=== PATIENT | female | born 1985 | race Two or more races ===

== ENCOUNTER 2022-06-03 23:41 | Emergency (ER) | payer MEDICAID ==
[~2022-06-03] VITALS: Ht 167.6 cm; Wt 85.0 kg
[2022-06-04] MEDS ORDERED: HYDROmorphone HCL 2 MG/ML VL/or syr IM ONE (01:30)
[2022-06-04] MEDS ORDERED: LIDOCAINE 1% HCL (LOCAL ANESTH.) INJ 20ML MDV ID ONE (01:30)
[2022-06-04 01:46] LABS: Basophils # (auto) 0.1 10 ^3/uL (0-0.2); Basophils % (auto) 0.7 % (0.0-2.0); Eosinophils # (auto) 0.1 10 ^3/uL (0-0.8); Eosinophils % (auto) 0.9 % (0.0-7.0); Hematocrit 41.1 % (36.0-46.0); Hemoglobin 14.4 g/dL (12.2-16.2); Lymphocytes # (auto) 3.1 10 ^3/uL (0.4-5.4); Lymphocytes % (auto) 33.4 % (10.0-50.0); Mean Corpuscular Hgb Conc. 35.1 g/dL (32.0-36.0); Mean Corpuscular Volume 85.6 fL (80.0-100.0); Monocytes # (auto) 0.5 10 ^3/uL (0-1.3); Monocytes % (auto) 5.5 % (0.0-12.0); Neutrophils # (auto) 5.5 10 ^3/uL (1.6-8.6); Neutrophils % (auto) 59.5 % (37.0-80.0); Nucleated Red Blood Cells % 0.1 %; Red Cell Distribution Width 13.6 % (11.8-14.3); White Blood Cell 9.3 10^3/uL (4.4-10.8)
[2022-06-04 02:01] LABS: Albumin 3.5 g/dL (3.4-5.0); Calcium 9.2 mg/dL (8.5-10.1); Potassium 3.4 mmol/L (3.5-5.1)
[2022-06-04 02:02] LABS: BUN/Creatinine Ratio 16.4
[2022-06-04 02:04] LABS: Bilirubin, Total 0.5 mg/dL (0.2-1.0); Total Protein 8.1 g/dL (6.4-8.2)
[2022-06-04 02:59] LABS: Protein, CSF 38.9 mg/dL (15-45)
[2022-06-04 03:43] LABS: CSF White Blood Cells 1.67 CUMM (0-5)
[2022-06-04 05:25] VITALS: BP 133/88
== END 2022-06-04 05:28 | disposition home or self-care (01) ==
LOC: EDBD 23:41 → ER 23:46
DX: R07.89 Other chest pain (principal); R51.9 Headache, unspecified
CPT/HCPCS: 36415; 80053; 82945; 83880; 84157; 84484; 85025; 87070; 87205; 87529; 89051; 93005; 96372; 99285; J1170; J2001

== ENCOUNTER 2023-02-13 10:10 | Emergency (ER) | payer MEDICAID ==
[~2023-02-13] VITALS: Ht 167.6 cm; Wt 82.0 kg
[2023-02-13 10:43] LABS: Basophils # (auto) 0 10 ^3/uL (0-0.2); Basophils % (auto) 0.5 % (0.0-2.0); Eosinophils # (auto) 0.1 10 ^3/uL (0-0.8); Eosinophils % (auto) 0.8 % (0.0-7.0); Hematocrit 38.5 % (36.0-46.0); Hemoglobin 12.8 g/dL (12.2-16.2); Lymphocytes # (auto) 1.4 10 ^3/uL (0.4-5.4); Lymphocytes % (auto) 20.2 % (10.0-50.0); Mean Corpuscular Hemoglobin 28.1 pg (28.0-32.0); Mean Corpuscular Hgb Conc. 33.3 g/dL (32.0-36.0); Mean Corpuscular Volume 84.4 fL (80.0-100.0); Monocytes # (auto) 0.3 10 ^3/uL (0-1.3); Monocytes % (auto) 3.9 % (0.0-12.0); Neutrophils # (auto) 5.3 10 ^3/uL (1.6-8.6); Neutrophils % (auto) 74.6 % (37.0-80.0); Nucleated Red Blood Cells % 0.1 %; Red Blood Cells 4.56 10^6/uL (4.0-5.20); Red Cell Distribution Width 13.2 % (11.8-14.3); White Blood Cell 7.1 10^3/uL (4.4-10.8)
[2023-02-13 10:57] LABS: INR 1.13 (0.9-1.15); Partial Thromboplastin Time 33.8 SEC (24.5-34.5)
[2023-02-13 11:18] LABS: Potassium 3.1 mmol/L (3.5-5.1)
[2023-02-13 11:26] LABS: Albumin 3.8 g/dL (3.4-5.0); BUN/Creatinine Ratio 18.1 (10.0-20.0); Bilirubin, Total 0.5 mg/dL (0.2-1.0); Calcium 9.2 mg/dL (8.5-10.1); Magnesium 2.3 mg/dL (1.6-2.6); Total Protein 7.3 g/dL (6.4-8.2)
[2023-02-13] MEDS ORDERED: POTASSIUM CHL 20 Meq TABLET PO ONE (12:45)
[2023-02-13 13:35] VITALS: BP 127/67
== END 2023-02-13 14:26 | disposition home or self-care (01) ==
LOC: ER 10:10
DX: R00.2 Palpitations (principal); E87.6 Hypokalemia; Z88.8 Allergy status to other drugs, medicaments and biological substances; Z90.49 Acquired absence of other specified parts of digestive tract; Z90.710 Acquired absence of both cervix and uterus; Z98.890 Other specified postprocedural states; Z87.891 Personal history of nicotine dependence
CPT/HCPCS: 36415; 71045; 80053; 83735; 84484; 85025; 85610; 85730; 93005

== ENCOUNTER 2023-07-16 17:41 | Emergency (ER) | payer MEDICAID ==
[~2023-07-16] VITALS: Ht 167.6 cm; Wt 76.0 kg
[2023-07-16 18:40] LABS: Basophils # (auto) 0 10 ^3/uL (0-0.2); Basophils % (auto) 0.2 % (0.0-2.0); Eosinophils # (auto) 0 10 ^3/uL (0-0.8); Hemoglobin 11.8 g/dL (12.2-16.2); Lymphocytes % (auto) 26.9 % (10.0-50.0); Mean Corpuscular Hemoglobin 28.5 pg (28.0-32.0); Mean Corpuscular Hgb Conc. 34.7 g/dL (32.0-36.0); Mean Corpuscular Volume 82.3 fL (80.0-100.0); Monocytes # (auto) 0.1 10 ^3/uL (0-1.3); Monocytes % (auto) 4.2 % (0.0-12.0); Neutrophils # (auto) 2.4 10 ^3/uL (1.6-8.6); Neutrophils % (auto) 68.7 % (37.0-80.0); Red Blood Cells 4.13 10^6/uL (4.0-5.20); Red Cell Distribution Width 12.5 % (11.8-14.3); White Blood Cell 3.5 10^3/uL (4.4-10.8)
[2023-07-16 18:47] LABS: Urine Bacteria MOD /hpf (None Seen); Urine Blood Negative /uL (Negative); Urine Clarity Clear (Clear); Urine Color STRAW (Yellow); Urine Protein, UAD Negative (Negative); Urine Specific Gravity 1.004 (1.001-1.035); Urine Urobilinogen Normal (Negative); Urine WBC 3 /hpf (0 - 5); Urine pH 6.5 (5.0-8.0)
[2023-07-16 18:51] LABS: Alanine Aminotransferase 23 U/L (7-40); Albumin 4.2 g/dL (3.2-4.8); Alkaline Phosphatase 159 U/L (46-116); Anion Gap 9 (5-15); Aspartate Aminotransferase 26 U/L (13-40); BUN/Creatinine Ratio 15.9 (10.0-20.0); Bilirubin, Total 0.2 mg/dL (0.2-1.0); Blood Urea Nitrogen 13 mg/dL (9-23); Calcium 8.7 mg/dL (8.5-10.1); Carbon Dioxide 28 mmol/L (20-30); Chloride 104 mmol/L (98-107); Glucose 102 mg/dL (74-106); Potassium 3.2 mmol/L (3.5-5.1); Sodium 141 mmol/L (136-145); Total Protein 8.8 g/dL (5.7-8.2)
[2023-07-16] MEDS ORDERED: METOCLOPRAMIDE HCL 5MG/ml INJ 2ml VIAL IM ONE (19:15)
[2023-07-16] MEDS ORDERED: KETOROLAC TROMETH 30 MG/ML 1ML VIAL IM ONE (19:15)
[2023-07-16] MEDS ORDERED: diphenhdrAMINE HCL 50 MG/1 ML VL IM ONE (19:15)
[2023-07-16 19:58] VITALS: TEMP 98.1
[2023-07-16] MEDS ORDERED: HYDROmorphone HCL 2 MG/ML VL/or syr IM ONE (21:45)
[2023-07-16] MEDS ORDERED: ONDANSETRON HCL 4 MG/2 ML VIAL IM ONE (21:45)
[2023-07-16 22:00] VITALS: PULSE 43; RESP 14; O2SAT 97
[2023-07-16 22:47] LABS: INR 1.09 (0.9-1.15); Partial Thromboplastin Time 25.7 SEC (24.5-34.5); Prothrombin Time 11.4 sec (9.3-11.8)
[2023-07-16 23:56] LABS: Protein, CSF 54.9 mg/dL (15-45)
[2023-07-17 00:51] LABS: CSF White Blood Cells 0 CUMM (0-5); Description,CSF CLEAR, COLORLESS
[2023-07-17] MEDS ORDERED: LORazepam 2MG/ML-1ML VIAL IV ONE (01:30)
[2023-07-17] MEDS: POTASSIUM CHL 20MEQ/100ML 100 ML IV SCH ×2 (02:17→04:15)
[2023-07-17 05:00] VITALS: BP 158/78; PULSE 45; RESP 12; O2SAT 100
== END 2023-07-17 07:32 | disposition home or self-care (01) ==
LOC: ER 17:41 → EDBD 17:41 → ER 07-17 07:32
DX: R51.9 Headache, unspecified (principal); E87.6 Hypokalemia; I25.2 Old myocardial infarction; Z90.49 Acquired absence of other specified parts of digestive tract; Z90.710 Acquired absence of both cervix and uterus; Z87.891 Personal history of nicotine dependence
CPT/HCPCS: 36415; 62270; 70450; 80053; 81001; 82945; 84157; 84484; 85025; 85610; 85730; 87040; 87070; 87205; 89051; 93005; 96365; 96366; 96372; 96375; 99285; J1170; J1200; J1885; J2060; J2405; J2765; J3480

== ENCOUNTER 2023-07-26 10:46 | Inpatient (IN) | payer MEDICAID ==
[~2023-07-26] VITALS: Ht 167.6 cm; Wt 77.0 kg
[2023-07-26] MEDS ORDERED: NITROGLYCERIN 0.4 MG SL TAB SL ONE (12:15)
[2023-07-26 12:38] LABS: Urine Bacteria FEW /hpf (None Seen); Urine Blood Negative /uL (Negative); Urine Budding Yeast OCCASIONAL /hpf (None Seen); Urine Clarity Clear (Clear); Urine Protein, UAD Negative (Negative); Urine Specific Gravity 1.011 (1.001-1.035); Urine Urobilinogen Normal (Negative); Urine WBC 4 /hpf (0 - 5); Urine pH 6.5 (5.0-8.0)
[2023-07-26 12:42] LABS: Urine Color Straw (Yellow)
[2023-07-26 12:45] LABS: Amphetamine Screen, Urine Neg (NEGATIVE); Barbiturate Scree,Urine Neg (NEGATIVE); Benzodiazephine Screen, Urine Neg (NEGATIVE); Cannabinoid Screen, Urine Neg (NEGATIVE); Cocaine Screen, Urine Neg (NEGATIVE); Opiate Scree,Urine Neg (NEGATIVE); Phencyclidine Screen, Urine Neg (NEGATIVE)
[2023-07-26] MEDS ORDERED: LABETALOL HCL 5 MG/ML 4ML SYRINGE IV ONE (12:45)
[2023-07-26 14:13] LABS: Basophils # (auto) 0 10 ^3/uL (0-0.2); Basophils % (auto) 0.5 % (0.0-2.0); Eosinophils # (auto) 0.1 10 ^3/uL (0-0.8); Eosinophils % (auto) 1.1 % (0.0-7.0); Hematocrit 38.2 % (36.0-46.0); Lymphocytes # (auto) 2.2 10 ^3/uL (0.4-5.4); Lymphocytes % (auto) 26.8 % (10.0-50.0); Mean Corpuscular Hemoglobin 28.2 pg (28.0-32.0); Mean Corpuscular Hgb Conc. 34.1 g/dL (32.0-36.0); Mean Corpuscular Volume 82.8 fL (80.0-100.0); Monocytes # (auto) 0.4 10 ^3/uL (0-1.3); Monocytes % (auto) 5.3 % (0.0-12.0); Neutrophils # (auto) 5.3 10 ^3/uL (1.6-8.6); Neutrophils % (auto) 66.3 % (37.0-80.0); Nucleated Red Blood Cells % 0.1 %; Red Blood Cells 4.61 10^6/uL (4.0-5.20); Red Cell Distribution Width 12.6 % (11.8-14.3)
[2023-07-26 15:03] LABS: Alanine Aminotransferase 22 U/L (7-40); Albumin 4.8 g/dL (3.2-4.8); Alkaline Phosphatase 182 U/L (46-116); Anion Gap 5 (5-15); Aspartate Aminotransferase 30 U/L (13-40); BUN/Creatinine Ratio 17.2 (10.0-20.0); Bilirubin, Total 0.4 mg/dL (0.2-1.0); Blood Urea Nitrogen 11 mg/dL (9-23); Calcium 9.4 mg/dL (8.7-10.4); Carbon Dioxide 32 mmol/L (20-30); Chloride 104 mmol/L (98-107); Glucose 91 mg/dL (74-106); Magnesium 2.1 mg/dL (1.6-2.6); Potassium 3.2 mmol/L (3.5-5.1); Sodium 141 mmol/L (136-145); Total Protein 8.8 g/dL (5.7-8.2)
[2023-07-26] MEDS ORDERED: HYDROcodone-ACET 5/325MG TAB PO ONE (16:30)
[2023-07-26] MEDS ORDERED: diphenhdrAMINE HCL 50 MG/1 ML VL IV ONE (18:15)
[2023-07-26] MEDS ORDERED: diphenhdrAMINE HCL 50 MG/1 ML VL IM ONE (19:15)
[2023-07-26] MEDS ORDERED: FAMOTIDINE 20 MG TAB PO ONE (19:15)
[2023-07-26] MEDS: MAGNESIUM SULFATE 1GM/100ML 100 ML IV ONE (19:37)
[2023-07-26] MEDS ORDERED: TIZA2CAP12 PO (20:00)
[2023-07-26] MEDS ORDERED: ONDANSETRON HCL 4 MG/2 ML VIAL IV PRN (20:00)
[2023-07-26] MEDS ORDERED: POTASSIUM CHL 20 Meq TABLET PO ONE (20:00)
[2023-07-26] MEDS ORDERED: ACETAMINOPHEN 325 MG TAB PO PRN (20:00)
[2023-07-26] MEDS ORDERED: GEMF-66 PO (20:00)
[2023-07-26] MEDS ORDERED: DOCUSATE SOD 100 MG CAP PO PRN (20:00)
[2023-07-26] MEDS ORDERED: TRAZ-228 PO (20:00)
[2023-07-26] MEDS ORDERED: AMLO1TAB22 PO (20:00)
[2023-07-26] MEDS ORDERED: [UNRECOGNIZED DRUG - CODE] PO (20:00)
[2023-07-26] MEDS ORDERED: hydrALAZINE HCL 20 MG/ML VL IV PRN (20:15)
[2023-07-26] MEDS ORDERED: traZODone HCL 50 MG TAB PO SCH (22:00)
[2023-07-26] MEDS: SODIUM CHLOR 0.9% PF (SALINE LOCK) 10ML VIAL/SYR IV SCH (22:38)
[2023-07-27] VITALS (7 sets, daily range): BP systolic 162–185; BP diastolic 86–103; PULSE 67–90; RESP 16–20; TEMP 98.2–98.4; O2SAT 97–100
[2023-07-27] MEDS: METOPROLOL TARTRATE 25 MG TAB PO SCH ×2 (01:58→09:55)
[2023-07-27] MEDS: GEMFIBROZIL 600 MG TAB PO SCH ×3 (01:58→22:37)
[2023-07-27] MEDS: HYDROcodone-ACET 5/325MG TAB PO PRN ×2 (01:59→10:07)
[2023-07-27] MEDS ORDERED: diphenhdrAMINE HCL 50 MG/1 ML VL IV ONE (02:00)
[2023-07-27] MEDS ORDERED: diphenhdrAMINE HCL 50 MG/1 ML VL IM ONE (02:15)
[2023-07-27] MEDS: SODIUM CHLOR 0.9% PF (SALINE LOCK) 10ML VIAL/SYR IV SCH ×3 (06:27→22:40)
[2023-07-27 06:28] LABS: Basophils # (auto) 0 10 ^3/uL (0-0.2); Basophils % (auto) 0.6 % (0.0-2.0); Eosinophils # (auto) 0.1 10 ^3/uL (0-0.8); Eosinophils % (auto) 2.4 % (0.0-7.0); Hematocrit 37.6 % (36.0-46.0); Hemoglobin 12.8 g/dL (12.2-16.2); Lymphocytes # (auto) 2.5 10 ^3/uL (0.4-5.4); Lymphocytes % (auto) 39.9 % (10.0-50.0); Mean Corpuscular Hemoglobin 28.3 pg (28.0-32.0); Mean Corpuscular Volume 83.1 fL (80.0-100.0); Monocytes # (auto) 0.6 10 ^3/uL (0-1.3); Monocytes % (auto) 9.1 % (0.0-12.0); Neutrophils # (auto) 2.9 10 ^3/uL (1.6-8.6); Nucleated Red Blood Cells % 0.2 %; Red Blood Cells 4.53 10^6/uL (4.0-5.20); Red Cell Distribution Width 12.4 % (11.8-14.3); White Blood Cell 6.1 10^3/uL (4.4-10.8)
[2023-07-27 06:35] LABS: Alanine Aminotransferase 18 U/L (7-40); Albumin 4.5 g/dL (3.2-4.8); Alkaline Phosphatase 175 U/L (46-116); Anion Gap 9 (5-15); Aspartate Aminotransferase 30 U/L (13-40); BUN/Creatinine Ratio 14.7 (10.0-20.0); Bilirubin, Total 0.5 mg/dL (0.2-1.0); Blood Urea Nitrogen 10 mg/dL (9-23); Calcium 9.3 mg/dL (8.7-10.4); Carbon Dioxide 27 mmol/L (20-30); Chloride 105 mmol/L (98-107); Glucose 97 mg/dL (74-106); Magnesium 2.1 mg/dL (1.6-2.6); Potassium 2.9 mmol/L (3.5-5.1); Sodium 141 mmol/L (136-145); Total Protein 8.2 g/dL (5.7-8.2)
[2023-07-27] MEDS: MAGNESIUM SULFATE 1GM/100ML 100 ML IV ONE (07:22)
[2023-07-27 09:19] LABS: Large Platelets FEW; Platelet Estimate Adequate
[2023-07-27] MEDS ORDERED: amLODIPine BESYLATE 5 MG TAB PO SCH (10:00)
[2023-07-27] MEDS ORDERED: FENT25DI2 PO (12:05)
[2023-07-27] MEDS ORDERED: HYDR8TAB46 PO (12:06)
[2023-07-27] MEDS ORDERED: MAGN400C3 PO (12:06)
[2023-07-27] MEDS ORDERED: METO25TA93 PO (12:07)
[2023-07-27] MEDS ORDERED: MULT-1018 PO (12:08)
[2023-07-27] MEDS ORDERED: ASCO500T11 PO (12:08)
[2023-07-27] MEDS ORDERED: CHOL20007 PO (12:09)
[2023-07-27] MEDS ORDERED: OMEP-434 PO (12:09)
[2023-07-27] MEDS ORDERED: CARI1CAP2 PO (12:10)
[2023-07-27] MEDS ORDERED: CLON1TAB PO (12:10)
[2023-07-27] MEDS ORDERED: [UNRECOGNIZED DRUG - CODE] PO (12:12)
[2023-07-27] MEDS ORDERED: [UNRECOGNIZED DRUG - CODE] IJ (12:12)
[2023-07-27] MEDS ORDERED: AML5T PO (12:13)
[2023-07-27] MEDS ORDERED: cloNIDine HCL 0.1 MG TAB PO PRN (13:30)
[2023-07-27] MEDS ORDERED: METOPROLOL TARTRATE 25 MG TAB PO ONE (13:45)
[2023-07-27] MEDS ORDERED: amLODIPine BESYLATE 5 MG TAB PO ONE (13:45)
[2023-07-27] MEDS: diphenhdrAMINE HCL 50 MG/1 ML VL IV PRN ×2 (16:49→22:38)
[2023-07-27] MEDS ORDERED: POTASSIUM CHL 20 Meq TABLET PO ONE (18:30)
[2023-07-27 19:45] LABS: Alanine Aminotransferase 22 U/L (7-40); Albumin 4.4 g/dL (3.2-4.8); Alkaline Phosphatase 164 U/L (46-116); Anion Gap 10 (5-15); Aspartate Aminotransferase 42 U/L (13-40); Blood Urea Nitrogen 13 mg/dL (9-23); Calcium 9.1 mg/dL (8.7-10.4); Carbon Dioxide 26 mmol/L (20-30); Chloride 106 mmol/L (98-107); Glucose 97 mg/dL (74-106); Magnesium 1.8 mg/dL (1.6-2.6); Potassium 3.9 mmol/L (3.5-5.1); Sodium 142 mmol/L (136-145)
[2023-07-27 19:46] LABS: Bilirubin, Total 0.4 mg/dL (0.2-1.0); Total Protein 7.8 g/dL (5.7-8.2)
[2023-07-27] MEDS: PREGABALIN CAPSULE 75 MG CAP PO SCH (21:42)
[2023-07-27] MEDS: LABETALOL HCL 200 MG TAB PO SCH (21:43)
[2023-07-27] MEDS ORDERED: METOPROLOL TARTRATE 50 MG TAB PO SCH (22:00)
[2023-07-27] MEDS ORDERED: traZODone HCL 50 MG TAB PO SCH (23:00)
[2023-07-28] MEDS: HYDROcodone-ACET 5/325MG TAB PO PRN (00:40)
[2023-07-28 04:36] VITALS: BP 139/79; PULSE 86; RESP 16; TEMP 98.2; O2SAT 98
[2023-07-28] MEDS: PREGABALIN CAPSULE 75 MG CAP PO SCH ×2 (05:11→13:56)
[2023-07-28] MEDS: LABETALOL HCL 200 MG TAB PO SCH ×2 (05:12→13:53)
[2023-07-28] MEDS: diphenhdrAMINE HCL 50 MG/1 ML VL IV PRN ×2 (05:12→12:42)
[2023-07-28] MEDS: SODIUM CHLOR 0.9% PF (SALINE LOCK) 10ML VIAL/SYR IV SCH ×2 (05:12→13:58)
[2023-07-28 08:00] VITALS: PULSE 77
[2023-07-28 09:10] VITALS: BP 131/77; PULSE 81; RESP 15; TEMP 98.7; O2SAT 95
[2023-07-28] MEDS: GEMFIBROZIL 600 MG TAB PO SCH (09:38)
[2023-07-28] MEDS ORDERED: amLODIPine BESYLATE 5 MG TAB PO SCH (10:00)
[2023-07-28] MEDS ORDERED: NIFEdipine ER 30 MG TAB PO SCH (10:00)
[2023-07-28] MEDS ORDERED: NIFE1TAB30 PO (10:27)
[2023-07-28] MEDS ORDERED: DIPH25CA51 PO (10:27)
[2023-07-28] MEDS ORDERED: LABE300T3 PO (10:27)
[2023-07-28 12:18] VITALS: BP 132/62; PULSE 86; TEMP 37.1
[2023-07-28 13:05] VITALS: BP 128/79; PULSE 81; RESP 15; TEMP 97.9; O2SAT 100
== END 2023-07-28 17:45 | disposition home or self-care (01) | DRG 199 ==
LOC: ER 10:46 → TELE 20:00 → TELE-WESTW 07-27 09:37
PROVIDERS: ADMIT Nurse Practitioner Family; ATTEND Family Medicine
DX: I16.0 Hypertensive urgency (principal); I47.10 Supraventricular tachycardia, unspecified; E87.6 Hypokalemia; G62.9 Polyneuropathy, unspecified; I10 Essential (primary) hypertension; R51.9 Headache, unspecified; I25.2 Old myocardial infarction; Z85.038 Personal history of other malignant neoplasm of large intestine; Z90.49 Acquired absence of other specified parts of digestive tract; Z82.49 Family history of ischemic heart disease and other diseases of the circulatory system; Z90.710 Acquired absence of both cervix and uterus; Z79.899 Other long term (current) drug therapy; Z86.61 Personal history of infections of the central nervous system; Z87.891 Personal history of nicotine dependence; Z88.3 Allergy status to other anti-infective agents; Z15.09 Genetic susceptibility to other malignant neoplasm
CPT/HCPCS: 36415; 70450; 71045; 80053; 80307; 81001; 83735; 84443; 84484; 84702; 85025; 87081; 93306; 96372; G0378

== ENCOUNTER 2023-08-01 20:42 | Inpatient (IN) | payer MEDICAID ==
[~2023-08-01] VITALS: Ht 167.6 cm; Wt 76.8 kg
[~2023-08-01 20:42] MED LIST: AML5T PO; AMLO1TAB22 PO; ASCO500T11 PO; CARI1CAP2 PO; CHOL20007 PO; CLON1TAB PO; DIPH25CA51 PO; FENT25DI2 PO; GEMF-66 PO; HYDR8TAB46 PO; LABE300T3 PO; MAGN400C3 PO; METO25TA93 PO; MULT-1018 PO; NIFE1TAB30 PO; OMEP-434 PO; TIZA2CAP12 PO; TRAZ-228 PO; [UNRECOGNIZED DRUG - CODE] IJ; [UNRECOGNIZED DRUG - CODE] PO; [UNRECOGNIZED DRUG - CODE] PO
[2023-08-01 21:50] LABS: Basophils # (auto) 0 10 ^3/uL (0-0.2); Basophils % (auto) 0.6 % (0.0-2.0); Eosinophils # (auto) 0.1 10 ^3/uL (0-0.8); Eosinophils % (auto) 1.2 % (0.0-7.0); Hematocrit 36.4 % (36.0-46.0); Lymphocytes # (auto) 1.5 10 ^3/uL (0.4-5.4); Lymphocytes % (auto) 27.5 % (10.0-50.0); Mean Corpuscular Hemoglobin 27.7 pg (28.0-32.0); Mean Corpuscular Hgb Conc. 33.1 g/dL (32.0-36.0); Mean Corpuscular Volume 83.8 fL (80.0-100.0); Monocytes # (auto) 0.4 10 ^3/uL (0-1.3); Monocytes % (auto) 6.4 % (0.0-12.0); Neutrophils # (auto) 3.6 10 ^3/uL (1.6-8.6); Neutrophils % (auto) 64.3 % (37.0-80.0); Nucleated Red Blood Cells % 0.1 %; Red Blood Cells 4.34 10^6/uL (4.0-5.20); Red Cell Distribution Width 13.1 % (11.8-14.3); White Blood Cell 5.6 10^3/uL (4.4-10.8)
[2023-08-01 22:19] LABS: Alanine Aminotransferase 21 U/L (7-40); Albumin 4.6 g/dL (3.2-4.8); Alkaline Phosphatase 201 U/L (46-116); Anion Gap 5 (5-15); Aspartate Aminotransferase 24 U/L (13-40); BUN/Creatinine Ratio 14.3 (10.0-20.0); Blood Urea Nitrogen 9 mg/dL (9-23); Calcium 9.7 mg/dL (8.5-10.1); Carbon Dioxide 29 mmol/L (20-30); Chloride 108 mmol/L (98-107); Glucose 84 mg/dL (74-106); Potassium 3.6 mmol/L (3.5-5.1); Sodium 142 mmol/L (136-145)
[2023-08-01 22:20] LABS: Bilirubin, Total 0.4 mg/dL (0.2-1.0)
[2023-08-01 22:27] LABS: Urine Bacteria FEW /hpf (None Seen); Urine Blood Negative /uL (Negative); Urine Clarity Clear (Clear); Urine Color Colorless (Yellow); Urine Protein, UAD Negative (Negative); Urine Specific Gravity 1.012 (1.001-1.035); Urine Urobilinogen Normal (Negative); Urine WBC 2 /hpf (0 - 5)
[2023-08-02] MEDS ORDERED: ACETAMINOPHEN 500 MG TAB PO ONE (01:30)
[2023-08-02] MEDS ORDERED: NITROGLYCERIN 0.4 MG SL TAB SL PRN (05:00)
[2023-08-02] MEDS ORDERED: ONDANSETRON HCL 4 MG/2 ML VIAL IV PRN (05:00)
[2023-08-02] MEDS ORDERED: TEMAZEPAM 15 MG CAP PO PRN (05:00)
[2023-08-02] MEDS ORDERED: ACETAMINOPHEN 325 MG TAB PO PRN (05:00)
[2023-08-02] MEDS ORDERED: MORPHINE SULFATE INJ 2 MG/ml SYRG IV PRN (05:00)
[2023-08-02] MEDS ORDERED: LABETALOL HCL 200 MG TAB PO SCH (06:00)
[2023-08-02] MEDS: HYDROcodone-ACET 5/325MG TAB PO PRN ×2 (06:24→19:11)
[2023-08-02 08:23] VITALS: PULSE 84; RESP 16; O2SAT 99
[2023-08-02] MEDS: PREGABALIN CAPSULE 75 MG CAP PO SCH ×2 (10:42→23:33)
[2023-08-02] MEDS: NIFEdipine ER 30 MG TAB PO SCH (10:43)
[2023-08-02] MEDS: GEMFIBROZIL 600 MG TAB PO SCH ×2 (10:43→23:33)
[2023-08-03] VITALS (7 sets, daily range): BP systolic 110–138; BP diastolic 71–88; PULSE 67–82; RESP 15–20; TEMP 97.9–98.5; O2SAT 96–100
[2023-08-03 06:54] LABS: Basophils # (auto) 0 10 ^3/uL (0-0.2); Basophils % (auto) 0.9 % (0.0-2.0); Eosinophils # (auto) 0.1 10 ^3/uL (0-0.8); Eosinophils % (auto) 3.6 % (0.0-7.0); Hematocrit 38.1 % (36.0-46.0); Lymphocytes # (auto) 1.7 10 ^3/uL (0.4-5.4); Lymphocytes % (auto) 48.5 % (10.0-50.0); Mean Corpuscular Hemoglobin 28.4 pg (28.0-32.0); Mean Corpuscular Hgb Conc. 34.2 g/dL (32.0-36.0); Monocytes # (auto) 0.4 10 ^3/uL (0-1.3); Monocytes % (auto) 10.5 % (0.0-12.0); Neutrophils # (auto) 1.3 10 ^3/uL (1.6-8.6); Neutrophils % (auto) 36.5 % (37.0-80.0); Nucleated Red Blood Cells % 0.3 %; Red Blood Cells 4.59 10^6/uL (4.0-5.20); Red Cell Distribution Width 12.7 % (11.8-14.3); White Blood Cell 3.6 10^3/uL (4.4-10.8)
[2023-08-03 06:59] LABS: Alanine Aminotransferase 20 U/L (7-40); Albumin 4.5 g/dL (3.2-4.8); Alkaline Phosphatase 193 U/L (46-116); Anion Gap 7 (5-15); Aspartate Aminotransferase 29 U/L (13-40); BUN/Creatinine Ratio 11.5 (10.0-20.0); Bilirubin, Total 0.5 mg/dL (0.2-1.0); Blood Urea Nitrogen 6 mg/dL (9-23); Calcium 9.4 mg/dL (8.7-10.4); Carbon Dioxide 26 mmol/L (20-30); Chloride 106 mmol/L (98-107); Glucose 87 mg/dL (74-106); Potassium 3.2 mmol/L (3.5-5.1); Sodium 139 mmol/L (136-145); Total Protein 7.9 g/dL (5.7-8.2)
[2023-08-03] MEDS: PREGABALIN CAPSULE 75 MG CAP PO SCH (10:22)
[2023-08-03] MEDS: GEMFIBROZIL 600 MG TAB PO SCH (10:22)
[2023-08-03] MEDS: NIFEdipine ER 30 MG TAB PO SCH (10:22)
[2023-08-03] MEDS: HYDROcodone-ACET 5/325MG TAB PO PRN (11:37)
[2023-08-03] MEDS ORDERED: POTASSIUM EFFERVESENT TAB 25 MEQ PO ONE (13:15)
== END 2023-08-03 18:45 | disposition home or self-care (01) | DRG 207 ==
LOC: ER 20:42 → EDUNIT# 20:42 → EDBD 20:42 → TELE 08-02 05:01 → TELE-CENTR 08-02 22:30
PROVIDERS: ADMIT Nurse Practitioner; ATTEND Nurse Practitioner Acute Care
DX: R00.2 Palpitations (principal); F41.9 Anxiety disorder, unspecified; G62.9 Polyneuropathy, unspecified; I10 Essential (primary) hypertension; Z85.038 Personal history of other malignant neoplasm of large intestine; Z88.8 Allergy status to other drugs, medicaments and biological substances; I25.2 Old myocardial infarction; Z80.9 Family history of malignant neoplasm, unspecified; Z82.49 Family history of ischemic heart disease and other diseases of the circulatory system; Z86.61 Personal history of infections of the central nervous system; Z88.3 Allergy status to other anti-infective agents; Z90.49 Acquired absence of other specified parts of digestive tract; Z90.710 Acquired absence of both cervix and uterus; Z15.09 Genetic susceptibility to other malignant neoplasm; I16.1 Hypertensive emergency
CPT/HCPCS: 36415; 70450; 71045; 80053; 81001; 84484; 84702; 85025; 85379; 87081; 93005; G0378

== ENCOUNTER 2024-07-11 07:51 | Inpatient (IN) | payer MEDICAID ==
[~2024-07-11] VITALS: Ht 165.1 cm; Wt 82.0 kg
[~2024-07-11 07:51] MED LIST changes: -AML5T PO; -AMLO1TAB22 PO; +CLON-1004 PO; -CLON1TAB PO; -LABE300T3 PO; +LABE300T5 PO; -METO25TA93 PO; -TIZA2CAP12 PO; +TIZA2CAP13 PO; +[UNRECOGNIZED DRUG - CODE] PO; -[UNRECOGNIZED DRUG - CODE] PO
--- NOTE | 2024-07-11 08:09 | ED.PDOC ---
HPI Comments 38 year old female presents to the ED with chief complaint of chest pain. Patient reports that she has been experiencing worsening chest tightness with associated lightheadedness for a week. Patient relays that she visited her feed preparation operator 2 days ago, but was only told to start taking Digoxin, which she is uncomfortable with as her heart rate goes anywhere from the 50s to the 140s. Patient states she has history of CO and SVT. Patient denies any SOB, cough, dizziness, headache, fever, numbness, or weakness. Chief Complaint: Chest Pain Time Seen by MD: 08:05 Primary Care Provider: LEONARDO Reviewed Notes: Nurses Notes, Medications, Allergies Allergies: Coded Allergies: Levofloxacin (Verified Allergy, Severe, chest pain, 02/13/23) Amitriptyline (Verified Allergy, Unknown, chest tightness, hallucinations, 08/03/23) Nitroglycerin (Verified Allergy, Unknown, rash, 08/03/23) Quetiapine (Verified Allergy, Unknown, chest tightness, hallucinations, 08/03/23) Sulfamethoxazole w/Trimethoprim (Verified Allergy, Unknown, 07/26/23) Sumatriptan (Verified Allergy, Unknown, severe palpitations, 08/03/23) Home Meds Active Scripts Diphenhydramine Hcl (BENADRYL CAPSULE) 25 Mg Cp, 25 MG PO QID, #28 CAP Prov:JOSE GOODMAN MD 07/28/23 Labetalol Hcl (Labetalol Hcl) 300 Mg Tab, 1 TAB PO TID, #180 TAB 3 Refills Prov:JOSE GOODMAN MD 07/28/23 Nifedipine (Nifedipine Er) 60 Mg Tab, 1 TAB PO DAILY, #90 TAB 3 Refills Prov:JOSE GOODMAN MD 07/28/23 Reported Medications Globulin, Immune IV (Zlb Behri (Privigen) 40 Gm/400 Ml Inj, 80 GM PO, INJ 07/27/23 Methylprednisolone Sod Succ (Solu-Medrol) 40 Mg Inj, 40 MG IJ, INJ 07/27/23 Clonazepam (Klonopin) 1 Mg Tab, 1 TAB PO HS, #90 TAB 1 Refill 07/27/23 Cariprazine HCl (Vraylar) 3 Mg Cap, 3 MG PO, CAP 07/27/23 Cholecalciferol (VITAMIN D3) 2,000 Unit Tab, 1 TAB PO DAILY, #30 TAB 5 Refills 07/27/23 Omeprazole Magnesium (Omeprazole) 20 Mg Tab, 20 MG PO DAILY, TAB 07/27/23 Multiple Vitamin (Multivitamins) Tab, 1 TAB PO DAILY, #90 TAB 3 Refills 07/27/23 Ascorbic Acid (VITAMIN C TABLET) 500 Mg Tb, 1 TAB PO DAILY, #30 TAB 3 Refills 07/27/23 Magnesium Oxide (Mg Supplement (MAGNESIUM) 400 Mg Cap, 400 MG PO, CAP 07/27/23 Hydromorphone Hcl (Dilaudid) 8 Mg Tab, 1 TAB PO DAILYPRN PRN for PAIN, #180 TAB 07/27/23 Fentanyl (Fentanyl) 25 Mcg/Hr Dis, 25 MCG PO, DIS 07/27/23 Gemfibrozil (Gemfibrozil) 600 Mg Tab, 1 TAB PO BID 07/26/23 Pregabalin (Pregabalin) 225 Mg Cap, 1 CAP PO TID 07/26/23 Tizanidine HCl (Tizanidine Hydrochloride) 2 Mg Cap, 1 CAP PO HS 07/26/23 Trazodone Hcl (Trazodone Hcl) 100 Mg Tab, 1 TAB PO HS 07/26/23 Information Source: Patient Mode of Arrival: Ambulatory Severity: Moderate Timing: Weeks Duration: Since onset Prehospital treatment: None Location: Chest (L) Radiation: No Radiation Quality: Tightness Onset: At Rest Cardiac Risk Factors: Smoker, HTN PE Risk Factors: None History of: Similar pain in past, CO Associated Signs and Symptoms: None Past Medical History PAST MEDICAL HISTORY: Cancer, HTN, CO Past Medical History (Other): SVT Surgical History: Appendectomy, Cholecystectomy, , Hysterectomy PATROL CONDUCTOR History: Endometriosis Family History Family History: Reviewed,noncontributory to illness, Family hx of heart bob, Family hx of HTN Family History (Other): arthritis Social History Smoker: Cigarettes Alcohol: Denies ETOH Use Drugs: Denies Drug Use Lives In: Home Constitutional: denies: chills, diaphoresis, fatigue, fever, malaise, sweats, weakness, others EENTM: denies: blurred vision, double vision, ear bleeding, ear discharge, ear drainage, ear pain, ear ringing, eye pain, eye redness, hearing loss, mouth pain, mouth swelling, nasal discharge, nose bleeding, nose congestion, nose pain , photophobia, tearing, throat pain, throat swelling, voice changes, others Respiratory: denies: cough, hemoptysis, orthopnea, SOB at rest, shortness of breath, SOB with excertion, stridor, wheezing, others Cardiovascular: reports: chest pain, lightheadedness; denies: dizzy spells, diaphoresis, Dyspnea on exertion, edema, irregular heart beat, left arm pain, palpitations, PND, syncope, others Gastrointestinal: denies: abdomen distended, abdominal pain, blood streaked bowels, constipated, diarrhea, dysphagia, difficulty swallowing, hematemesis, melena, nausea, poor appetite, poor fluid intake, rectal bleeding, rectal pain, vomiting, others Genitourinary: denies: abnormal vagina bleeding, burning, dyspareunia, dysuria, flank pain, frequency, hematuria, incontinence, pain, , vagina discharge, urgency, others Neurological: denies: dizziness, fainting, headache, left sided numbness, left sided weakness, numbness, paresthesia, pre-existing deficit, right sided numbness, right sided weakness, seizure, speech problems, tingling, tremors, weakness, others Musculoskeletal: denies: back pain, gout, joint pain, joint swelling, muscle pain, muscle stiffness, neck pain, others Integumetry: denies: bruises, change in color, change in hair/nails, dryness, laceration, lesions, lumps, rash, wounds, others Allergic/Immunocompromised: denies: Difficulty Healing, Frequent Infections, Hives, Itching, others Hematologic/Lymphatic: denies: anemia, blood clots, easy bleeding, easy bruising, swollen glands, others Endocrine: denies: excessive hunger, excessive sweating, excessive thirst, excessive urination, flushing, intolerance to cold, intolerance to heat, unexplained weight gain, unexplained weight loss, others Psychiatric: denies: anxiety, bipolar disorder, depression, hopeless, panic disorder, schizophrenia, sleepless, suicidal, others All Other Systems: Reviewed and Negative Physical Exam General Appearance: Moderate Distress, Normal HEENT: Normal ENT Inspection, PERRL/EOMI Neck: Full Range of Motion, Non-Tender, Normal, Normal Inspection Respiratory: Chest Non-Tender, Lungs Clear, No Accessory Muscle Use, No Respiratory Distress, Normal Breath Sounds Cardiovascular: No Edema, No JVD, No Murmur, No Gallop, Normal Peripheral Pulses, Regular Rate/Rhythm Breast Exam: Deferred Gastrointestinal: No Organomegaly, Non Tender, No Pulsatile Mass, Normal Bowel Sounds, Soft Genitalia: Deferred Pelvic: Deferred Rectal: Deferred Extremities: No calf tenderness, Normal capillary refill, Normal inspection, Normal range of motion, Non-tender, No pedal edema Musculoskeletal : Apperance: Normal Neurologic: Alert, precinct commanding officer II-XII nml as Tested, No Motor Deficits, Normal Affect, Normal Mood, No Sensory Deficits Cerebellar Function: NOT DONE Reflexes: NOT DONE Skin: Dry, Normal Color, Warm Peripheral Pulses: 3+ Radial (R), 3+ Radial (L) Lymphatic: No Adenopathy Was a procedure done? Was a procedure done?: No CP Differential Dx Differential Diagnosis: A-fib, A-Flutter, Angina, Anxiety / Panic Attack, Atrial Dysrhythmia, Electrolyte Disorder X-Ray, Labs, Meds, VS Vital Signs Date Time Temp Pulse Resp B/P (MAP) Pulse Ox O2 Delivery O2 Flow Rate FiO2 07/11/24 13:15 98.3 88 17 101/76 (84) 97 98.3 07/11/24 09:44 98.4 80 18 113/77 (89) 98 98.4 07/11/24 09:44 80 18 98 Room Air* 0 21 07/11/24 09:12 77 07/11/24 08:04 97.9 85 8 114/78 (90) 100 07/11/24 07:58 87 Lab Test 07/11/24 11:01 07/11/24 09:15 07/11/24 08:03 07/11/24 08:02 Range/Units Troponin I High Sensitivity < 3 L < 3 L 3 L </=34 ng/L Urine Color Light-yellow Yellow Urine Clarity Ex.turbid Clear Urine pH 5.5 5.0-9.0 Urine Specific [place] 1.026 1.001-1.035 Urine Protein 1+ H Negative Urine Ketones Negative Negative Urine Blood Negative Negative /uL Urine Nitrite Negative Negative Urine Bilirubin Negative Negative Urine Urobilinogen Normal Negative mg/dL Urine Leukocyte Esterase Negative Negative /uL Urine RBC 3 0 - 4 /hpf Urine WBC 35 0 - 5 /hpf Urine Squamous Epithelial Cells Few <5 /hpf Urine Bacteria Many H None Seen /hpf Urine Mucus Many None Seen Urine Glucose Normal Normal mg/dL White Blood Count 8.7 4.4-10.8 10^3/uL Red Blood Count 5.32 H 4.0-5.20 10^6/uL Hemoglobin 15.8 12.2-16.2 g/dL Hematocrit 46.0 36.0-46.0 % Mean Corpuscular Volume 86.4 80.0-100.0 fL Mean Corpuscular Hemoglobin 29.7 28.0-32.0 pg Mean Corpuscular Hemoglobin Concent 34.4 32.0-36.0 g/dL Red Cell Distribution Width 12.6 11.8-14.3 % Platelet Count 200 140-450 10^3/uL Mean Platelet Volume 9.2 6.9-10.8 fL Neutrophils (%) (Auto) 63.4 37.0-80.0 % Lymphocytes (%) (Auto) 27.7 10.0-50.0 % Monocytes (%) (Auto) 7.2 0.0-12.0 % Eosinophils (%) (Auto) 1.1 0.0-7.0 % Basophils (%) (Auto) 0.6 0.0-2.0 % Neutrophils # (Auto) 5.5 1.6-8.6 10 ^3/uL Lymphocytes # (Auto) 2.4 0.4-5.4 10 ^3/uL Monocytes # (Auto) 0.6 0-1.3 10 ^3/uL Eosinophils # (Auto) 0.1 0-0.8 10 ^3/uL Basophils # (Auto) 0 0-0.2 10 ^3/uL Nucleated Red Blood Cells 0.0 % Prothrombin Time 10.7 9.3-11.8 sec Prothrombin Time INR 1.01 0.9-1.15 Activated Partial Thromboplast Time 27.3 24.5-34.5 SEC Sodium Level 143 136-145 mmol/L Potassium Level 4.1 3.5-5.1 mmol/L Chloride Level 105 98-107 mmol/L Carbon Dioxide Level 30 20-31 mmol/L Anion Gap 8 5-15 Blood Urea Nitrogen 14 9-23 mg/dL Creatinine 0.71 0.550-1.02 mg/dL Glomerular Filtration Rate Calc 112 >90 mL/min BUN/Creatinine Ratio 19.7 10.0-20.0 Serum Glucose 94 74-106 mg/dL Calcium Level 10.2 8.7-10.4 mg/dL Total Bilirubin 0.9 0.2-1.0 mg/dL Aspartate Amino Transferase (AST) 25 13-40 U/L Alanine Aminotransferase (ALT) 54 H 7-40 U/L Alkaline Phosphatase 107 46-116 U/L Total Protein 7.2 5.7-8.2 g/dL Albumin 4.5 3.2-4.8 g/dL Chest XR: FINDINGS: Lines and Tubes: There is a right chest port catheter with the tip in the superior vena cava. Lungs: No focal consolidation. Pleura: No effusion.No pneumothorax. Cardiomediastinal contours: Unremarkable Pulmonary vasculature: Within normal limits. Bones: No acute osseous abnormality. IMPRESSION: 1. No acute cardiopulmonary disease. Patient alert. Came in for chest pain. Vitals stable. Answering all questions. Chest x-ray reviewed does not show any acute process. Images Reviewed?: Images reviewed and evaluated by me Time of 1ST Reevaluation: 09:05 Reevaluation 1ST: Unchanged Patient Education/Counseling: Diagnosis, Treatment Family Education/Counseling: No Family Present Departure 1 Departure Time of Disposition: 14:57 Impression: Primary Impression: Chest pain of unknown etiology Disposition: ADMITTED INPATIENT Admit to: Med Surg Condition: Guarded Critical Care Note Critical Care Time?: Yes (45 min-critical care time only) Stability Stability form required: No Heart Score Heart Score: Heart Score Response (Comments) Value History Moderate Suspicious 1 EKG Normal 0 Age <45 0 Risk Factors 1 or 2 risk factors 1 Troponin Normal limit 0 Total 2 I personally scribed for LYNNETTE NINA MD ([email or web address]) on 07/11/24 at 08:09. Electronically submitted by Vic Neely ([email or web address]). I personally scribed for LYNNETTE NINA MD ([email or web address]) on 07/11/24 at 09:15. Electronically submitted by Vic Neely ([email or web address]). LYNNETTE NINA MD Jul 11, 2024 08:09
[2024-07-11 08:28] LABS: Basophils # (auto) 0 10 ^3/uL (0-0.2); Basophils % (auto) 0.6 % (0.0-2.0); Eosinophils # (auto) 0.1 10 ^3/uL (0-0.8); Eosinophils % (auto) 1.1 % (0.0-7.0); Hemoglobin 15.8 g/dL (12.2-16.2); Lymphocytes # (auto) 2.4 10 ^3/uL (0.4-5.4); Lymphocytes % (auto) 27.7 % (10.0-50.0); Mean Corpuscular Hemoglobin 29.7 pg (28.0-32.0); Mean Corpuscular Hgb Conc. 34.4 g/dL (32.0-36.0); Mean Corpuscular Volume 86.4 fL (80.0-100.0); Monocytes # (auto) 0.6 10 ^3/uL (0-1.3); Monocytes % (auto) 7.2 % (0.0-12.0); Neutrophils # (auto) 5.5 10 ^3/uL (1.6-8.6); Neutrophils % (auto) 63.4 % (37.0-80.0); Platelet Count (auto) 200 10^3/uL (140-450); Red Blood Cells 5.32 10^6/uL (4.0-5.20); Red Cell Distribution Width 12.6 % (11.8-14.3); White Blood Cell 8.7 10^3/uL (4.4-10.8)
--- NOTE | 2024-07-11 08:38 | DVH ---
CHEST RADIOGRAPH Indication: CP Technique: Single frontal view of the chest was obtained Comparison: XY CHEST XRAY 1 VIEW on DOS: 08/02/23, XY CHEST PORTABLE on DOS: 07/26/23 FINDINGS: Lines and Tubes: There is a right chest port catheter with the tip in the superior vena cava. Lungs: No focal consolidation. Pleura: No effusion.No pneumothorax. Cardiomediastinal contours: Unremarkable Pulmonary vasculature: Within normal limits. Bones: No acute osseous abnormality. IMPRESSION: 1. No acute cardiopulmonary disease. HS:Y
[2024-07-11 08:43] LABS: Albumin 4.5 g/dL (3.2-4.8); Alkaline Phosphatase 107 U/L (46-116); Anion Gap 8 (5-15); Aspartate Aminotransferase 25 U/L (13-40); BUN/Creatinine Ratio 19.7 (10.0-20.0); Blood Urea Nitrogen 14 mg/dL (9-23); Calcium 10.2 mg/dL (8.7-10.4); Carbon Dioxide 30 mmol/L (20-31); Chloride 105 mmol/L (98-107); Glucose 94 mg/dL (74-106); Potassium 4.1 mmol/L (3.5-5.1); Sodium 143 mmol/L (136-145)
[2024-07-11 08:44] LABS: Alanine Aminotransferase 54 U/L (7-40); Bilirubin, Total 0.9 mg/dL (0.2-1.0); Total Protein 7.2 g/dL (5.7-8.2)
[2024-07-11 08:49] LABS: INR 1.01 (0.9-1.15); Partial Thromboplastin Time 27.3 SEC (24.5-34.5); Prothrombin Time 10.7 sec (9.3-11.8)
[2024-07-11 09:44] VITALS: PULSE 80; RESP 18; O2SAT 98
--- NOTE | 2024-07-11 12:19 | DVHHP2 ---
History of Present Illness Reason for Visit: Chest pain History of Present Illness Minna Thornton this is a 38-year-old female with past medical history of SVT, hypertension, ID, colon cancer, appendectomy, cholecystectomy, , and hysterectomy who presents to the ED with chest pain and lightheadedness x1 week. Patient reports starting taking digoxin seen by her tow picker 2 days ago, Dr. Denney. Patient states that the combination of digoxin and metoprolol are causing arrhythmias for her. Patient also reports that she was receiving IVIG at [facility] monthly for neuropathy that was pretty severe and leptomeningeal enhancements. Patient states that she eventually developed severe flu-like symptoms for about a month this was 6 weeks ago which then her primary told her that she no longer would be able to receive IVIG. Patient denies abdominal pain, fever, chills, headache, back pain, nausea, vomiting, and diarrhea. Cardiovascular: HTN, ID, Other (SVT) Past Medical History Cancer Past Surgical History: Appendectomy, Cholecystectomy, , Hysterectomy Past Surgical History liver resection colon resection Family History: Arthritis Family History ID HTN Stents Smoke: <1 pack per day ALCOHOL: none Drugs: None Lives: with Family Domestic Violence: Neg Review of Systems Constitutional: No: Fever, Chills, Sweats, Weakness, Malaise, Other Eyes: No: Pain, Vision change, Conjunctivae inflammation, Eyelid inflammation, Other, Redness ENT: No: Ear pain, Ear discharge, Nose pain, Nose discharge, Nose congestion, Mouth pain, Mouth swelling, Throat pain, Throat swelling, Other Respiratory: No: Cough, Dry, Shortness of breath, SOB with excertion, Wheezing, Hemoptysis, Pleuritic Pain, Sputum, Wheezing, Other Cardiovascular: Chest Pain, Lt Headedness; No: Palpitations, Orthopnea, Paroxysmal Noc. Dyspnea, Edema, Other Gastrointestinal: No: Nausea, Vomiting, Abdominal Pain, Diarrhea, Constipation, Melena, Hematochezia, Other Genitourinary: No Dysuria, No Frequency, No Incontinence, No Hematuria, No Retention, No Other Musculoskeletal: No: other, neck pain, shoulder pain, arm pain, back pain, hand pain, leg pain, foot pain Skin: No: Rash, Lesions, Jaundice, Bruising, Other Neurological: No: Weakness, Numbness, Incoordination, Change in speech, Confusion, Seizures, Other Allergies: Coded Allergies: Levofloxacin (Verified Allergy, Severe, chest pain, 02/13/23) Amitriptyline (Verified Allergy, Unknown, chest tightness, hallucinations, 08/03/23) Nitroglycerin (Verified Allergy, Unknown, rash, 08/03/23) Quetiapine (Verified Allergy, Unknown, chest tightness, hallucinations, 08/03/23) Sulfamethoxazole w/Trimethoprim (Verified Allergy, Unknown, 07/26/23) Sumatriptan (Verified Allergy, Unknown, severe palpitations, 08/03/23) Exam Vital Signs Vital Signs Date Time Temp Pulse Resp B/P (MAP) Pulse Ox O2 Delivery O2 Flow Rate FiO2 07/11/24 09:44 98.4 80 18 113/77 (89) 98 98.4 07/11/24 09:44 Room Air* 0 21 General Appearance: Alert, Oriented X3, Cooperative, mild distress HEENT: Atraumatic, PERRLA, EOMI, Mucous membr. moist/pink Respiratory: Normal air movement Cardiovascular: Normal S1, Normal S2, No murmurs Abdominal: Normal bowel sounds, Soft, No tenderness, No hepatospenomegaly Extremities: No clubbing, No cyanosis, No edema, Normal pulses, No tenderness/swelling Skin: No rashes, No breakdown, No significant lesion Neuro: Normal gait, Normal speech, Strength at 5/5 X4 ext, Normal tone, Sensation intact Psych/Mental Status: Mental status NL, Mood NL Labs/Xrays Labs Test 07/11/24 11:01 07/11/24 08:02 Range/Units Troponin I High Sensitivity < 3 L </=34 ng/L White Blood Count 8.7 4.4-10.8 10^3/uL Red Blood Count 5.32 H 4.0-5.20 10^6/uL Hemoglobin 15.8 12.2-16.2 g/dL Hematocrit 46.0 36.0-46.0 % Mean Corpuscular Volume 86.4 80.0-100.0 fL Mean Corpuscular Hemoglobin 29.7 28.0-32.0 pg Mean Corpuscular Hemoglobin Concent 34.4 32.0-36.0 g/dL Red Cell Distribution Width 12.6 11.8-14.3 % Platelet Count 200 140-450 10^3/uL Mean Platelet Volume 9.2 6.9-10.8 fL Neutrophils (%) (Auto) 63.4 37.0-80.0 % Lymphocytes (%) (Auto) 27.7 10.0-50.0 % Monocytes (%) (Auto) 7.2 0.0-12.0 % Eosinophils (%) (Auto) 1.1 0.0-7.0 % Basophils (%) (Auto) 0.6 0.0-2.0 % Neutrophils # (Auto) 5.5 1.6-8.6 10 ^3/uL Lymphocytes # (Auto) 2.4 0.4-5.4 10 ^3/uL Monocytes # (Auto) 0.6 0-1.3 10 ^3/uL Eosinophils # (Auto) 0.1 0-0.8 10 ^3/uL Basophils # (Auto) 0 0-0.2 10 ^3/uL Nucleated Red Blood Cells 0.0 % Prothrombin Time 10.7 9.3-11.8 sec Prothrombin Time INR 1.01 0.9-1.15 Activated Partial Thromboplast Time 27.3 24.5-34.5 SEC Sodium Level 143 136-145 mmol/L Potassium Level 4.1 3.5-5.1 mmol/L Chloride Level 105 98-107 mmol/L Carbon Dioxide Level 30 20-31 mmol/L Anion Gap 8 5-15 Blood Urea Nitrogen 14 9-23 mg/dL Creatinine 0.71 0.550-1.02 mg/dL Glomerular Filtration Rate Calc 112 >90 mL/min BUN/Creatinine Ratio 19.7 10.0-20.0 Serum Glucose 94 74-106 mg/dL Calcium Level 10.2 8.7-10.4 mg/dL Total Bilirubin 0.9 0.2-1.0 mg/dL Aspartate Amino Transferase (AST) 25 13-40 U/L Alanine Aminotransferase (ALT) 54 H 7-40 U/L Alkaline Phosphatase 107 46-116 U/L Total Protein 7.2 5.7-8.2 g/dL Albumin 4.5 3.2-4.8 g/dL CHEST RADIOGRAPH Indication: CP Technique: Single frontal view of the chest was obtained Comparison: XY CHEST XRAY 1 VIEW on DOS: 08/02/23, XY CHEST PORTABLE on DOS: 07/26/23 FINDINGS: Lines and Tubes: There is a right chest port catheter with the tip in the superior vena cava. Lungs: No focal consolidation. Pleura: No effusion.No pneumothorax. Cardiomediastinal contours: Unremarkable Pulmonary vasculature: Within normal limits. Bones: No acute osseous abnormality. IMPRESSION: 1. No acute cardiopulmonary disease. Assessment/Plan Assessment/Plan Assessment: Cardiac arrhythmia History of SVT Hypertension ID Cancer Appendectomy Cholecystectomy Hysterectomy liver resection colon resection Plan: Admit to tele Cardiology consult IV fluids Pain management Chest x-ray noted Antiemetics EKG ECHO TSH Lipid panel Urine drug screen Diet as tolerated Monitor labs Home medications reconciled Counseled on smoking cessation Plan discussed with: Patient Date of Service: Jul 11, 2024 Billing Provider: ALVARO WEINER Common Visit Codes: [id number] INP/OBS CARE (MOD) ALVARO WEINER Jul 11, 2024 12:19
[2024-07-11 14:12] LABS: Urine Bacteria MANY /hpf (None Seen); Urine Blood Negative /uL (Negative); Urine Clarity Ex.Turbid (Clear); Urine Color Light-Yellow (Yellow); Urine Mucus MANY (None Seen); Urine Protein, UAD 1+ (Negative); Urine Specific Gravity 1.026 (1.001-1.035); Urine Urobilinogen Normal (Negative); Urine WBC 35 /hpf (0 - 5); Urine pH 5.5 (5.0-9.0)
[2024-07-11] MEDS ORDERED: MORPHINE SULFATE INJ 2 MG/ml SYRG IV PRN (14:45)
[2024-07-11] MEDS ORDERED: MORPHINE SULFATE 4 MG/ML SYR/VIAL IV PRN (14:45)
[2024-07-11] MEDS: MAALOX PLUS or MAALOX 30 ML PO ONE (14:45)
[2024-07-11] MEDS ORDERED: LORazepam 0.5 MG TAB PO PRN (14:45)
[2024-07-11] MEDS: ASPirin 81 mg TAB PO ONE (15:16)
[2024-07-11] MEDS ORDERED: PREGABALIN CAPSULE 75 MG CAP PO SCH (15:19)
[2024-07-11 16:12] LABS: LDL Cholesterol 72 mg/dL (< 100)
[2024-07-11 16:14] LABS: Cholesterol 159 mg/dL (< 200)
[2024-07-11 16:29] LABS: HDL Cholesterol 37 mg/dL (40-59); Triglycerides 294 mg/dL (< 150)
[2024-07-11] MEDS: SODIUM CHLORIDE 0.9% 1,000 ML IV SCH (17:04)
[2024-07-11 17:59] VITALS: PULSE 76; RESP 18; O2SAT 99
[2024-07-11 20:35] LABS: Amphetamine Screen, Urine Neg (NEGATIVE); Benzodiazephine Screen, Urine Pos (NEGATIVE)
[2024-07-11 20:37] LABS: Barbiturate Scree,Urine Neg (NEGATIVE); Cannabinoid Screen, Urine Neg (NEGATIVE); Cocaine Screen, Urine Neg (NEGATIVE); Opiate Scree,Urine Neg (NEGATIVE); Phencyclidine Screen, Urine Neg (NEGATIVE)
[2024-07-11] MEDS ORDERED: clonazePAM 0.5 MG TAB PO SCH (22:00)
[2024-07-11] MEDS ORDERED: traZODone HCL 50 MG TAB PO SCH (22:00)
[2024-07-11] MEDS: TIZANIDINE HCL 2 MG PO SCH (22:00)
[2024-07-11] MEDS: GEMFIBROZIL 600 MG TAB PO SCH (22:00)
[2024-07-11] MEDS ORDERED: HYDR2.5O TOP (22:20)
[2024-07-11] MEDS ORDERED: METO25TA5 PO (22:20)
[2024-07-11] MEDS ORDERED: DIVA-93 PO (22:20)
[2024-07-11] MEDS ORDERED: DIVA-92 PO (22:20)
[2024-07-11] MEDS ORDERED: TEMA30CA5 PO (22:20)
[2024-07-11] MEDS: TEMAZEPAM 15 MG CAP PO PRN (22:56)
[2024-07-12] VITALS (11 sets, daily range): BP systolic 94–118; BP diastolic 51–76; PULSE 61–108; RESP 16–19; TEMP 97.4–98.6; O2SAT 94–100
[2024-07-12 02:18] LABS: Urine Bacteria None Seen /hpf (None Seen)
[2024-07-12 03:04] LABS: Urine Blood Negative /uL (Negative); Urine Budding Yeast OCCASIONAL /hpf (None Seen); Urine Clarity Clear (Clear); Urine Color Yellow (Yellow); Urine Mucus FEW (None Seen); Urine Protein, UAD TRACE (Negative); Urine Specific Gravity 1.025 (1.001-1.035); Urine Urobilinogen Normal (Negative); Urine WBC 1 /hpf (0 - 5); Urine pH 5.5 (5.0-9.0)
--- NOTE | 2024-07-12 06:48 | ECG ---
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
--- NOTE | 2024-07-12 07:03 | ECG ---
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
[2024-07-12] MEDS: ONDANSETRON HCL 4 MG/2 ML VIAL IV PRN (08:44)
[2024-07-12] MEDS: MULTIPLE VITAMIN TAB PO SCH (08:44)
[2024-07-12] MEDS: CHOLECALCIFEROL (VITD3) 1,000UNIT=25mCg TAB PO SCH (08:45)
[2024-07-12] MEDS: PANTOPRAZOLE 40 MG TAB PO SCH (08:45)
[2024-07-12] MEDS: ASCORBIC ACID 500 MG TAB PO SCH (08:45)
[2024-07-12 09:35] LABS: Basophils # (auto) 0 10 ^3/uL (0-0.2); Basophils % (auto) 0.6 % (0.0-2.0); Eosinophils # (auto) 0.2 10 ^3/uL (0-0.8); Hematocrit 44.7 % (36.0-46.0); Hemoglobin 14.9 g/dL (12.2-16.2); Lymphocytes # (auto) 2.8 10 ^3/uL (0.4-5.4); Lymphocytes % (auto) 32.4 % (10.0-50.0); Mean Corpuscular Hemoglobin 29.3 pg (28.0-32.0); Mean Corpuscular Hgb Conc. 33.4 g/dL (32.0-36.0); Mean Corpuscular Volume 87.7 fL (80.0-100.0); Monocytes # (auto) 0.6 10 ^3/uL (0-1.3); Monocytes % (auto) 7.2 % (0.0-12.0); Neutrophils % (auto) 57.8 % (37.0-80.0); Platelet Count (auto) 177 10^3/uL (140-450); Red Cell Distribution Width 12.7 % (11.8-14.3); White Blood Cell 8.6 10^3/uL (4.4-10.8)
[2024-07-12 09:57] LABS: Alkaline Phosphatase 102 U/L (46-116); Anion Gap 6 (5-15); BUN/Creatinine Ratio 15.4 (10.0-20.0); Blood Urea Nitrogen 10 mg/dL (9-23); Calcium 9.4 mg/dL (8.7-10.4); Carbon Dioxide 29 mmol/L (20-31); Chloride 106 mmol/L (98-107); Glucose 86 mg/dL (74-106); Potassium 3.7 mmol/L (3.5-5.1); Sodium 141 mmol/L (136-145)
[2024-07-12 09:58] LABS: Aspartate Aminotransferase 23 U/L (13-40); Bilirubin, Total 0.9 mg/dL (0.2-1.0); Total Protein 6.4 g/dL (5.7-8.2)
[2024-07-12] MEDS ORDERED: ASPirin 81 mg TAB PO SCH (10:00)
[2024-07-12] MEDS ORDERED: ASPirin 325 MG TAB PO SCH (10:00)
[2024-07-12] MEDS: DOCUSATE SOD 100 MG CAP PO SCH (10:00)
[2024-07-12 10:15] LABS: Alanine Aminotransferase 44 U/L (7-40)
--- NOTE | 2024-07-12 14:50 | DVHPN2 ---
Assessment/Plan Assessment/Plan Progress note Subjective 38-year-old female with history of colon cancer status post chemo and resection, depression, adrenal insufficiency, SVT admitted for palpitation and arrhythmia. Following with Dr. Denney cardiology Objective Physical exam Alert, oriented x3 PERRLA No JVD Clear breath sounds bilaterally S1-S2 regular rate and rhythm no murmur Abdomen soft nontender, no organomegaly Moving all four extremities No lower extremity edema Lab Triglyceride 294 TSH 0.46 Imaging Chest x-ray clear with Port-A-Cath Assessment and plan Palpitation, likely from SVT History of colon cancer status post chemo and resection MDD Adrenal insufficiency Consult cardiology Resume home medication Admit to telemetry If patient had episodes and severe tachycardia, get EKG Send thyroid panel Soon gemfibrozil for triglyceridemia Replete electrolytes Diet cardiac DVT prophylaxis ambulatory Plan discussed with: Patient My Orders Orders - JULIENNE HOWARD MD Procedure Category Date Status Time Orthostatic Vital ORDERS 07/12/24 Transmitted Signs 14:37 Hydrocortisone Tablet PHA 07/13/24 Logged (Cortef Tablet) 10:[address] Tablet PHA 07/13/24 Logged (Depakote "Dr" Tabl 10:[address] Tablet PHA 07/12/24 Logged (Depakote "Dr" Tabl 22:00 Date of Service: Jul 12, 2024 Billing Provider: JULIENNE HOWARD MD Common Visit Codes: [id number] INP/OBS CARE(HIGH) JULIENNE HOWARD MD Jul 12, 2024 14:50
--- NOTE | 2024-07-12 16:36 | DVHSR ---
APPROVED REPORT EXAM: Two-dimensional and M-mode echocardiogram with Doppler, color Doppler and Bubble Study. Blood Pressure: 94/57 mmHg INDICATION Chest Pain RISK FACTORS Height: 5'5", Weight: 162 DIMENSIONS LVDd4.5 (3.8-5.7cm)LA (2D)4.2 (1.9-4.0cm)Aortic Root2.7 (2.0-3.7cm) LVDs2.9 (2.5-4.0cm)LA (MM) (1.9-4.0cm)Aortic Cusp Exc1.7 (1.5-2.0cm) EF (%) 64.0 (55-70%)Rt. Atrium3.2 (1.9-4.0cm)Asc. Aorta2.8 cm IVSd0.8 (0.7-1.1cm)RV (D) (1.8-2.4cm) PWd0.7 (0.7-1.1cm) Mitral Valve MitralMitral Stenosis E wave0.80m/sMV Mean GR.mmHg A wave0.85m/sMV Peak GR.mmHg E/A ratio0.92D MVAcm2 DECEL [id number] 1/2 Timems Aortic Valve Aortic ValveAortic Stenosis V10.88m/Mane Mean GR.4mmHg V21.20m/Mane Peak GR.6mmHg LVOT Diameter2.0 (1.8-2.4cm)Doppler AVA2.30cm2 Pulmonic Valve V20.82m/s Conclusion Left ventricle: Left ventricle was normal size with normal systolic function. LVEF was around 65%. There was no gross wall motion abnormality. Left ventricular diastolic function was considered norm al. Right ventricle was normal size with normal systolic function. Both atria were normal size. Mobile intra-atrial septum was observed. Aortic valve was trileaflet. There was no aortic insufficiency/stenosis. Mild mitral valve prolapse with minimal regurgitation was observed. There was no tricuspid regurgitation. There was no pulmon yolande valve insufficiency. There was no pericardial effusion. As there was no good tricuspid regurgitation jet, right ventricular systolic pressure could not be es timated. There was no echocardiographic evidence for pulmonary hypertension.
--- NOTE | 2024-07-12 18:46 | DVHINCON2 ---
Date of service: Jul 12, 2024 History of Present Illness HPI Patient is a 38-year-old female who presented to the hospital for 1 week of feeling weak and lightheadedness accompanied with severe diarrhea and occasional chest discomfort. Cardiology is involved for cardiac aspects of care. She is known to our practice from outside and before. Does have history of SVT for which takes metoprolol. She was recently started in low-dose digoxin. It is known that she does have rheumatoid arthritis and was on IVIG for its management. It seems that around a month ago/6 weeks ago she had 1 course of IV IVIG which resulted in significant side effects. She is told by outside physicians that she should stop IVIG. Reportedly she did have repeated abdominal pains swellings. She mentions that she feels occasional palpitation (mostly when she stands up and walks around). It is of note that she mentions that she is experiencing repeated diarrhea for the past few weeks. She mentions that she has watery stools up to 6 to 7 times a day. Home Meds Active Scripts Diphenhydramine Hcl (BENADRYL CAPSULE) 25 Mg Cp, 25 MG PO QID, #28 CAP Prov:JOSE GOODMAN MD 07/28/23 Labetalol Hcl (Labetalol Hcl) 300 Mg Tab, 1 TAB PO TID, #180 TAB 3 Refills Prov:JOSE GOODMAN MD 07/28/23 Nifedipine (Nifedipine Er) 60 Mg Tab, 1 TAB PO DAILY, #90 TAB 3 Refills Prov:JOSE GOODMAN MD 07/28/23 Reported Medications Divalproex Sodium (Depakote Er) 500 Mg Tab, 1 TAB PO BID, #60 TAB 2 Refills 07/11/24 Divalproex Sodium (Depakote Er) 250 Mg Tab, 1 TAB PO QPM, #30 TAB 2 Refills 24 Temazepam (Restoril) 30 Mg Cap, 1 CAP PO QPM, #30 CAP 1 Refill 07/11/24 Hydrocortisone Base (Hydrocortisone) 2.5 % Oin, TOP BID, #60 GRAMS 1 Refill 07/11/24 Metoprolol Tartrate (Metoprolol Tartrate) 25 Mg Tab, 1 TAB PO BID, #60 TAB 5 Refills 07/11/24 Cholecalciferol (VITAMIN D3) 2,000 Unit Tab, 1 TAB PO DAILY, #30 TAB 5 Refills 07/27/23 Omeprazole Magnesium (Omeprazole) 20 Mg Tab, 20 MG PO DAILY, TAB 07/27/23 Multiple Vitamin (Multivitamins) Tab, 1 TAB PO DAILY, #90 TAB 3 Refills 07/27/23 Ascorbic Acid (VITAMIN C TABLET) 500 Mg Tb, 1 TAB PO DAILY, #30 TAB 3 Refills 07/27/23 Magnesium Oxide (Mg Supplement (MAGNESIUM) 400 Mg Cap, 400 MG PO, CAP 07/27/23 Pregabalin (Pregabalin) 225 Mg Cap, 1 CAP PO TID 07/26/23 Tizanidine HCl (Tizanidine Hydrochloride) 2 Mg Cap, 1 CAP PO HS 07/26/23 Discontinued Reported Medications Methylprednisolone Sod Succ (Solu-Medrol) 40 Mg Inj, 40 MG IJ, INJ 07/27/23 Hydromorphone Hcl (Dilaudid) 8 Mg Tab, 1 TAB PO DAILYPRN PRN for PAIN, #180 TAB 07/27/23 Fentanyl (Fentanyl) 25 Mcg/Hr Dis, 25 MCG PO, DIS 07/27/23 Past Medical History Others Past medical history includes old history of colon cancer, hypertension, SVT (on metoprolol as outpatient), endometriosis, rheumatoid arthritis, Iglesias syndrome, history of multiple abdominal surgeries, previously on IVIG and questionable old myocardial infarction (seen/reported a nuclear stress test). She actively smokes cigarettes. Denies drug abuse. Patient Family History: Arthritis G8 MOTHER FH: heart disease G8 FATHER FHx: hypertension G8 FATHER FHx: neuropathy G8 FATHER Smoker: Positive Alocohol: None Lives with: With family Review of Systems Constitutional: No symptom reported Cardiovascular: Palpitations Gastrointestinal: Nausea, Diarrhea All Other Systems Fourteen point review of system was performed. Relevant findings as per above and as per HPI. Otherwise negative H&P Exam Vital Signs Vital Signs Date Time Temp Pulse Resp B/P (MAP) Pulse Ox O2 Delivery O2 Flow Rate FiO2 07/12/24 17:00 98.0 67 16 109/69 (82) 99 98.0 07/12/24 08:00 Room Air* 0 21 General Appeara: Well developed, Well nourished Head Exam: Normal inspection Eye Exam: bilateral eye PERRL Mouth: Normal Inspection Pulmonary/Respiratory: Lungs clear Cardiovascular/Chest: Normal inspection, Regular rate Peripheral Pulses: 2+ carotid (R), 2+ carotid (L), 2+ femoral (R), 2+ femoral (L), 2+ dorsalis pedis (R), 2+ dorsalis pedis (L), 2+ Radial (R), 2+ Radial (L) Abdominal Exam: Normal bowel sounds, Soft, No hepatospenomegaly Neuro/Mental St: Alert, Oriented Appearance: Appropriate appearance Eye contact/ Speech: Cooperative Labs/Xrays Labs Test 07/12/24 08:58 07/12/24 00:00 07/11/24 11:01 07/11/24 08:03 Range/Units White Blood Count 8.6 4.4-10.8 10^3/uL Red Blood Count 5.10 4.0-5.20 10^6/uL Hemoglobin 14.9 12.2-16.2 g/dL Hematocrit 44.7 36.0-46.0 % Mean Corpuscular Volume 87.7 80.0-100.0 fL Mean Corpuscular Hemoglobin 29.3 28.0-32.0 pg Mean Corpuscular Hemoglobin Concent 33.4 32.0-36.0 g/dL Red Cell Distribution Width 12.7 11.8-14.3 % Platelet Count 177 140-450 10^3/uL Mean Platelet Volume 9.6 6.9-10.8 fL Neutrophils (%) (Auto) 57.8 37.0-80.0 % Lymphocytes (%) (Auto) 32.4 10.0-50.0 % Monocytes (%) (Auto) 7.2 0.0-12.0 % Eosinophils (%) (Auto) 2.0 0.0-7.0 % Basophils (%) (Auto) 0.6 0.0-2.0 % Neutrophils # (Auto) 5.0 1.6-8.6 10 ^3/uL Lymphocytes # (Auto) 2.8 0.4-5.4 10 ^3/uL Monocytes # (Auto) 0.6 0-1.3 10 ^3/uL Eosinophils # (Auto) 0.2 0-0.8 10 ^3/uL Basophils # (Auto) 0 0-0.2 10 ^3/uL Nucleated Red Blood Cells 0.0 % Sodium Level 141 136-145 mmol/L Potassium Level 3.7 3.5-5.1 mmol/L Chloride Level 106 98-107 mmol/L Carbon Dioxide Level 29 20-31 mmol/L Anion Gap 6 5-15 Blood Urea Nitrogen 10 9-23 mg/dL Creatinine 0.65 0.550-1.02 mg/dL Glomerular Filtration Rate Calc 116 >90 mL/min BUN/Creatinine Ratio 15.4 10.0-20.0 Serum Glucose 86 74-106 mg/dL Calcium Level 9.4 8.7-10.4 mg/dL Total Bilirubin 0.9 0.2-1.0 mg/dL Aspartate Amino Transferase (AST) 23 13-40 U/L Alanine Aminotransferase (ALT) 44 H 7-40 U/L Alkaline Phosphatase 102 46-116 U/L Total Protein 6.4 5.7-8.2 g/dL Albumin 4.0 3.2-4.8 g/dL Urine Color Yellow Yellow Urine Clarity Clear Clear Urine pH 5.5 5.0-9.0 Urine Specific [place] 1.025 1.001-1.035 Urine Protein Trace H Negative Urine Ketones Negative Negative Urine Blood Negative Negative /uL Urine Nitrite Negative Negative Urine Bilirubin Negative Negative Urine Urobilinogen Normal Negative mg/dL Urine Leukocyte Esterase Negative Negative /uL Urine RBC <1 0 - 4 /hpf Urine WBC 1 0 - 5 /hpf Urine Squamous Epithelial Cells Few <5 /hpf Urine Bacteria None seen None Seen /hpf Urine Mucus Few None Seen Urine Yeast (Budding) Occasional None Seen /hpf Urine Glucose Normal Normal mg/dL Troponin I High Sensitivity < 3 L </=34 ng/L Urine Opiates Screen Neg NEGATIVE Urine Fentanyl Screen Neg NEGATIVE Urine Barbiturates Screen Neg NEGATIVE Urine Phencyclidine Screen Neg NEGATIVE Urine Amphetamines Screen Neg NEGATIVE Urine Benzodiazepines Screen Pos NEGATIVE Urine Cocaine Screen Neg NEGATIVE Urine Cannabinoids Screen Neg NEGATIVE Test 07/11/24 08:02 Range/Units Prothrombin Time 10.7 9.3-11.8 sec Prothrombin Time INR 1.01 0.9-1.15 Activated Partial Thromboplast Time 27.3 24.5-34.5 SEC Triglycerides Level 294 H < 150 mg/dL Cholesterol Level 159 < 200 mg/dL LDL Cholesterol 72 < 100 mg/dL HDL Cholesterol 37 L 40-59 mg/dL Thyroid Stimulating Hormone (TSH) 0.46 L 0.55-4.78 uIU/mL Assessment/Plan Plan Patient is a 38-year-old female who presented to the hospital for 1 week of feeling weak and lightheadedness accompanied with severe diarrhea and occasional chest discomfort. Cardiology is involved for cardiac aspects of care. She is known to our practice from outside and before. Does have history of SVT for which takes metoprolol. She was recently started in low-dose digoxin. It is known that she does have rheumatoid arthritis and was on IVIG for its management. It seems that around a month ago/6 weeks ago she had 1 course of IV IVIG which resulted in significant side effects. She is told by outside physicians that she should stop IVIG. Reportedly she did have repeated abdominal pains swellings. She mentions that she feels occasional palpitation (mostly when she stands up and walks around). It is of note that she mentions that she is experiencing repeated diarrhea for the past few weeks. She mentions that she has watery stools up to 6 to 7 times a day. Not in acute distress. Mucosa is pink and wet. No carotid bruit. No goiter. Not using accessory muscles of breathing. Lungs are clear to auscultation. Cardiac: Regular, no thrill/gallop. Abdomen is soft. Bowel sound is positive. There is no gross mass/hepatomegaly. Extremities do not reveal edema. Dorsalis pedis is 2+ bilateral Past medical history includes old history of colon cancer, hypertension, SVT (on metoprolol as outpatient), endometriosis, rheumatoid arthritis, Iglesias syndrome, history of multiple abdominal surgeries, previously on IVIG and questionable old myocardial infarction (seen/reported a nuclear stress test). She actively smokes cigarettes. Denies drug abuse. Echocardiogram of August 2023 reported ejection fraction of 60-65%, normal diastolic, mobile interatrial septum, trace TR/MR and right ventricular systolic pressure of less than 35 mm Hg Creatinine: 0.71 - 0.65 Potassium: 4.1 - 3.7 TSH: 0.46 Troponin (high sensitive): 4 - <3 - <3 Urine toxicology was positive for benzodiazepine Chest x-ray reported: IMPRESSION: 1. No acute cardiopulmonary disease. EKG revealed sinus rhythm with no ST-T changes Tele reveals sinus rhythm Echocardiogram reported: Left ventricle: Left ventricle was normal size with normal systolic function. LVEF was around 65%. There was no gross wall motion abnormality. Left ventricular diastolic function was considered normal. Right ventricle was normal size with normal systolic function. Both atria were normal size. Mobile intra-atrial septum was observed. Aortic valve was trileaflet. There was no aortic insufficiency/stenosis. Mild mitral valve prolapse with m inimal regurgitation was observed. There was no tricuspid regurgitation. There was no pulmonary valve insufficiency. There was no pericardial effusion. As there was no good tricuspid regurgitation jet, right ventricular systolic pressure could not be estimated. There was no echocardiographic evidence for pulmonary hypertension. Patient is a 38-year-old female who presented with generalized weakness and lightheadedness. She was concerned about palpitations. She was concerned about fast heart rate when standing up. It is of note that patient has been having significant and repeated diarrhea. She mentions that she has had chronic diarrhea since she had treatment for colon cancer. Diarrhea has increased since the last treatment for IVIG. Clinically, tachycardia has been sinus tachycardia and may have been secondary to low intravascular volume. It is of note that the patient does have history of SVT for which takes metoprolol. But SVT usually does not changed by patient's position. Most likely, the patient does have low intravascular volume as the etiology for repeated tachycardia during stand up and walking around. Palpitation, when standing up Diarrhea, repeated History of colon cancer History of IVIG treatment, had side effects secondary to that SVT, history of Rheumatoid arthritis Iglesias syndrome Cardiac suggestion for management: Manage on telemetry Fluid resuscitation Follow-up electrolytes and kidney function tests and correct abnormalities. Keep potassium above 4 and magnesium above 2. Request for digoxin level Metoprolol tartrate at 25 mg t.i.d. suggested GI consultation for repeated diarrhea and history of colon cancer Further evaluation and management depends on the above and clinical course Thank you for consultation A total of 75 minutes was spent reviewing the patient record, examining the patient, making a diagnostic and therapeutic plan, discussing this plan with medical personnel, following up on diagnostic studies and following the patient for clinical stability excluding any and all procedures. At least 50% of this time was spent in direct, [id number] contact. Thank you for allowing me to participate in this patient's care. Further recommendations will depend on patient's clinical course. Please do not hesitate to contact me if you have any questions or concerns. This medical document was created using electronic medical record system with [employer] computerized dictation system. Although this document has been carefully reviewed, there may still be some phonetic and typographical errors. These areas are purely typographical due to the imperfection of the software programs, and do not reflect any compromise in the patient's medical care. Plan discussed with: Patient, Other (nurse) YOLI DOLL MD Jul 12, 2024 18:46
[2024-07-12] MEDS: METOPROLOL TARTRATE 25 MG TAB PO SCH (21:24)
[2024-07-13] VITALS (8 sets, daily range): BP systolic 90–133; BP diastolic 54–80; PULSE 58–71; RESP 17–18; TEMP 97.4–98.2; O2SAT 97–99
[2024-07-13 07:06] LABS: Free Thyroxine Index 2.2 (1.2-4.9); Thyroxine (T4) 7.8 ug/dL (4.5-12.0)
[2024-07-13 08:16] LABS: Basophils # (auto) 0 10 ^3/uL (0-0.2); Basophils % (auto) 0.5 % (0.0-2.0); Eosinophils # (auto) 0.1 10 ^3/uL (0-0.8); Eosinophils % (auto) 1.4 % (0.0-7.0); Hematocrit 40.3 % (36.0-46.0); Hemoglobin 13.9 g/dL (12.2-16.2); Lymphocytes # (auto) 1.9 10 ^3/uL (0.4-5.4); Lymphocytes % (auto) 30.9 % (10.0-50.0); Mean Corpuscular Hemoglobin 29.8 pg (28.0-32.0); Mean Corpuscular Hgb Conc. 34.5 g/dL (32.0-36.0); Mean Corpuscular Volume 86.4 fL (80.0-100.0); Monocytes # (auto) 0.5 10 ^3/uL (0-1.3); Monocytes % (auto) 8.4 % (0.0-12.0); Neutrophils # (auto) 3.7 10 ^3/uL (1.6-8.6); Neutrophils % (auto) 58.8 % (37.0-80.0); Nucleated Red Blood Cells % 0.1 %; Platelet Count (auto) 145 10^3/uL (140-450); Red Blood Cells 4.67 10^6/uL (4.0-5.20); Red Cell Distribution Width 12.4 % (11.8-14.3); White Blood Cell 6.3 10^3/uL (4.4-10.8)
[2024-07-13 08:31] LABS: Albumin 3.6 g/dL (3.2-4.8); Alkaline Phosphatase 89 U/L (46-116); Anion Gap 8 (5-15); Aspartate Aminotransferase 20 U/L (13-40); BUN/Creatinine Ratio 10.8 (10.0-20.0); Calcium 9.1 mg/dL (8.7-10.4); Carbon Dioxide 27 mmol/L (20-31); Glucose 93 mg/dL (74-106); Sodium 145 mmol/L (136-145)
[2024-07-13 08:33] LABS: Bilirubin, Total 0.5 mg/dL (0.2-1.0); Total Protein 5.7 g/dL (5.7-8.2)
[2024-07-13 08:34] LABS: Alanine Aminotransferase 41 U/L (7-40); Blood Urea Nitrogen 7 mg/dL (9-23); Chloride 110 mmol/L (98-107); Potassium 3.3 mmol/L (3.5-5.1)
[2024-07-13] MEDS: HYDROCORTISONE 10 MG TAB PO SCH (11:30)
--- NOTE | 2024-07-13 12:04 | DVHPN2 ---
Progress Note - Dictate Date Seen: Jul 13, 2024 Medical Necessity Reason Pt with a Central, PICC or Fol: No vital signs Vital Sign Date Time Temp Pulse Resp B/P (MAP) Pulse Ox O2 Delivery O2 Flow Rate FiO2 07/13/24 09:00 97.7 58 17 90/55 (67) 98 97.7 07/12/24 20:00 Room Air* 0 21 Total Intake and Output 07/12/24 07/12/24 07/13/24 15:00 23:00 07:00 Intake Total 100 ml 400 ml Balance 100 ml 400 ml medications Current Medications Medications Dose Ordered Sig/Rivka Route Start Time Stop Time Status Last Admin Dose Admin Sodium Chloride 1,000 ml @ 75 mls/hr [id number] IV 07/11/24 14:45 07/11/24 17:04 75 MLS/HR Aspirin 325 mg DAILY PO 07/12/24 10:00 UNV Acetaminophen 650 mg Q6HP PRN PO 07/11/24 14:45 Docusate Sodium 100 mg DAILY PO 07/12/24 10:00 Ondansetron HCl 4 mg Q4HP PRN IV 07/11/24 14:45 07/13/24 10:27 4 MG Ascorbic Acid 500 mg DAILY PO 07/12/24 10:00 07/13/24 10:20 500 MG Gemfibrozil 600 mg BID PO 07/11/24 22:00 07/13/24 10:19 600 MG Multivitamins 1 tab DAILY PO 07/12/24 10:00 07/13/24 10:19 1 TAB Cholecalciferol 2,000 unit DAILY PO 07/12/24 10:00 07/13/24 10:20 2,000 UNIT Pantoprazole Sodium 40 mg DAILY PO 07/12/24 10:00 07/13/24 10:20 40 MG Pregabalin 225 mg TID PO 07/11/24 15:19 Hold Patient Own Medication 1 cap HS PO 07/11/24 22:00 Temazepam 30 mg HSPRN PRN PO 07/11/24 22:45 07/12/24 23:27 30 MG Hydrocortisone 15 mg DAILY PO 07/13/24 10:00 07/13/24 11:30 15 MG Divalproex Sodium 250 mg DAILY PO 07/13/24 10:00 07/13/24 10:19 250 MG Divalproex Sodium 500 mg HS PO 07/12/24 22:00 07/12/24 21:23 500 MG Metoprolol Tartrate 25 mg TID PO 07/12/24 22:00 07/12/24 21:24 25 MG laboratory and microbiology Laboratory Tests 07/13/24 06:55 Test 07/13/24 06:55 Range/Units Serum Glucose 93 74-106 mg/dL Assessment/Plan Patient is a 38-year-old female who presented to the hospital for 1 week of feeling weak and lightheadedness accompanied with severe diarrhea and occasional chest discomfort. Cardiology is involved for cardiac aspects of care. She is known to our practice from outside and before. Does have history of SVT for which takes metoprolol. She was recently started in low-dose digoxin. It is known that she does have rheumatoid arthritis and was on IVIG for its management. It seems that around a month ago/6 weeks ago she had 1 course of IV IVIG which resulted in significant side effects. She is told by outside physicians that she should stop IVIG. Reportedly she did have repeated abdominal pains swellings. She mentions that she feels occasional palpitation (mostly when she stands up and walks around). It is of note that she mentions that she is experiencing repeated diarrhea for the past few weeks. She mentions that she has watery stools up to 6 to 7 times a day. Not in acute distress. Mucosa is pink and wet. No carotid bruit. No goiter. Not using accessory muscles of breathing. Lungs are clear to auscultation. Cardiac: Regular, no thrill/gallop. Abdomen is soft. Bowel sound is positive. There is no gross mass/hepatomegaly. Extremities do not reveal edema. Dorsalis pedis is 2+ bilateral Past medical history includes old history of colon cancer, hypertension, SVT (on metoprolol as outpatient), endometriosis, rheumatoid arthritis, Iglesias syndrome, history of multiple abdominal surgeries, previously on IVIG and questionable old myocardial infarction (seen/reported in a previous nuclear stress test). She actively smokes cigarettes. Denies drug abuse. Echocardiogram of August 2023 reported ejection fraction of 60-65%, normal diastolic, mobile interatrial septum, trace TR/MR and right ventricular systolic pressure of less than 35 mm Hg Creatinine: 0.71 - 0.65 - 0.65 Potassium: 4.1 - 3.7 - 3.3 TSH: 0.46 Troponin (high sensitive): 4 - <3 - <3 Digoxin level: < 0.14 Urine toxicology was positive for benzodiazepine Chest x-ray reported: IMPRESSION: 1. No acute cardiopulmonary disease. EKG revealed sinus rhythm with no ST-T changes Tele reveals sinus rhythm Echocardiogram reported: Left ventricle: Left ventricle was normal size with normal systolic function. LVEF was around 65%. There was no gross wall motion abnormality. Left ventricular diastolic function was considered normal. Right ventricle was normal size with normal systolic function. Both atria were normal size. Mobile intra-atrial septum was observed. Aortic valve was trileaflet. There was no aortic insufficiency/stenosis. Mild mitral valve prolapse with minimal regurgitation was observed. There was no tricuspid regurgitation. There was no pulmonary valve insufficiency. There was no pericardial effusion. As there was no good tricuspid regurgitation jet, right ventricular systolic pressure could not be estimated. There was no echocardiographic evidence for pulmonary hypertension. Patient is a 38-year-old female who presented with generalized weakness and lightheadedness. She was concerned about palpitations. She was concerned about fast heart rate when standing up. It is of note that patient has been having significant and repeated diarrhea. She mentions that she has had chronic diarrhea since she had treatment for colon cancer. Diarrhea has increased since the last treatment for IVIG. Clinically, tachycardia has been sinus tachycardia and may have been secondary to low intravascular volume. It is of note that the patient does have history of SVT for which takes metoprolol. But SVT usually does not changed by patient's position. Most likely, the patient does have low intravascular volume as the etiology for repeated tachycardia during stand up and walking around. Palpitation, when standing up Diarrhea, repeated History of colon cancer History of IVIG treatment, had side effects secondary to that SVT, history of Rheumatoid arthritis Iglesias syndrome Cardiac suggestion for management: Manage on telemetry Fluid resuscitation Follow-up electrolytes and kidney function tests and correct abnormalities. Keep potassium above 4 and magnesium above 2. Metoprolol tartrate at 25 mg t.i.d. for now GI consultation for repeated diarrhea and history of colon cancer Further evaluation and management depends on the above and clinical course A total of 55 minutes was spent reviewing the patient record, examining the patient, making a diagnostic and therapeutic plan, discussing this plan with medical personnel, following up on diagnostic studies and following the patient for clinical stability excluding any and all procedures. At least 50% of this time was spent in direct, [id number] contact. Thank you for allowing me to participate in this patient's care. Further recommendations will depend on patient's clinical course. Please do not hesitate to contact me if you have any questions or concerns. This medical document was created using electronic medical record system with [employer] computerized dictation system. Although this document has been carefully reviewed, there may still be some phonetic and typographical errors. These areas are purely typographical due to the imperfection of the software programs, and do not reflect any compromise in the patient's medical care. Plan discussed with: Patient, Other (nurse) YOLI DOLL MD Jul 13, 2024 12:04
--- NOTE | 2024-07-13 12:21 | DVHPN2 ---
Changes from previous H/P or p: No Changes Eyes: No Pain, No Vision change, No Conjunctivae inflammation, No Eyelid inflammation, No Other, No Redness ENT: No Ear pain, No Ear discharge, No Nose pain, No Nose discharge, No Nose congestion, No Mouth pain, No Mouth swelling, No Throat pain, No Throat swelling, No Other Cardiovascular: Chest Pain; No Palpitations, No Orthopnea, No Paroxysmal Noc. Dyspnea, No Edema; Lt Headedness; No Other Respiratory: No Cough, No Dry, No Shortness of breath, No SOB with excertion, No Wheezing, No Hemoptysis, No Pleuritic Pain, No Sputum, No Other Gastrointestinal: No Nausea, No Vomiting, No Abdominal Pain, No Diarrhea, No Constipation, No Melena, No Hematochezia, No Other Genitourinary: No Dysuria, No Frequency, No Incontinence, No Hematuria, No Retention, No Other Musculoskeletal: No other, No neck pain, No shoulder pain, No arm pain, No back pain, No hand pain, No leg pain, No foot pain Skin: No Rash, No Lesions, No Jaundice, No Bruising, No Other Objective Vitals Vital Signs Date Time Temp Pulse Resp B/P (MAP) Pulse Ox O2 Delivery O2 Flow Rate FiO2 07/13/24 09:00 97.7 58 17 90/55 (67) 98 97.7 07/12/24 20:00 Room Air* 0 21 Intake/Output Intake and Output 07/13/24 07:00 Intake Total 500 ml Balance 500 ml Intake Oral 500 ml # Voids 4 # Bowel Movements 4 Medications Current Medications Medications Dose Ordered Sig/Rivka Route Start Time Stop Time Status Last Admin Dose Admin Sodium Chloride 1,000 ml @ 75 mls/hr [id number] IV 07/11/24 14:45 07/11/24 17:04 75 MLS/HR Aspirin 325 mg DAILY PO 07/12/24 10:00 UNV Acetaminophen 650 mg Q6HP PRN PO 07/11/24 14:45 Docusate Sodium 100 mg DAILY PO 07/12/24 10:00 Ondansetron HCl 4 mg Q4HP PRN IV 07/11/24 14:45 07/13/24 10:27 4 MG Ascorbic Acid 500 mg DAILY PO 07/12/24 10:00 07/13/24 10:20 500 MG Gemfibrozil 600 mg BID PO 07/11/24 22:00 07/13/24 10:19 600 MG Multivitamins 1 tab DAILY PO 07/12/24 10:00 07/13/24 10:19 1 TAB Cholecalciferol 2,000 unit DAILY PO 07/12/24 10:00 07/13/24 10:20 2,000 UNIT Pantoprazole Sodium 40 mg DAILY PO 07/12/24 10:00 07/13/24 10:20 40 MG Pregabalin 225 mg TID PO 07/11/24 15:19 Hold Patient Own Medication 1 cap HS PO 07/11/24 22:00 Temazepam 30 mg HSPRN PRN PO 07/11/24 22:45 07/12/24 23:27 30 MG Hydrocortisone 15 mg DAILY PO 07/13/24 10:00 07/13/24 11:30 15 MG Divalproex Sodium 250 mg DAILY PO 07/13/24 10:00 07/13/24 10:19 250 MG Divalproex Sodium 500 mg HS PO 07/12/24 22:00 07/12/24 21:23 500 MG Metoprolol Tartrate 25 mg TID PO 07/12/24 22:00 07/12/24 21:24 25 MG Laboratory Results Laboratory Tests 07/13/24 06:55 Chemistry Test 07/13/24 06:55 Albumin 3.6 g/dL (3.2-4.8) Calcium Level 9.1 mg/dL (8.7-10.4) Total Protein 5.7 g/dL (5.7-8.2) LFT Test 07/13/24 06:55 Alanine Aminotransferase (ALT) 41 U/L (7-40) H Alkaline Phosphatase 89 U/L (46-116) Aspartate Amino Transferase (AST) 20 U/L (13-40) Total Bilirubin 0.5 mg/dL (0.2-1.0) Urinalysis Test 07/12/24 00:00 Urine Color Yellow (Yellow) Urine Clarity Clear (Clear) Urine pH 5.5 (5.0-9.0) Urine Specific [place] 1.025 (1.001-1.035) Urine Protein Trace (Negative) H Urine Ketones Negative (Negative) Urine Blood Negative /uL (Negative) Urine Nitrite Negative (Negative) Urine Bilirubin Negative (Negative) Urine Urobilinogen Normal mg/dL (Negative) Urine Leukocyte Esterase Negative /uL (Negative) Urine RBC <1 /hpf (0 - 4) Urine WBC 1 /hpf (0 - 5) Urine Squamous Epithelial Cells Few /hpf (<5) Urine Bacteria None seen /hpf (None Seen) Urine Mucus Few (None Seen) Urine Yeast (Budding) Occasional /hpf (None Urine Glucose Normal mg/dL (Normal) Labs and/or images reviewed: Labs reviewed by me, Image(s) reviewed by me Assessment/Plan Assessment/Plan Covering for Dr Reese Cardiac arrhythmia, consult by Dr. Denney appreciated History of SVT Hypertension [place] Cancer Appendectomy History of Cholecystectomy Hysterectomy liver resection colon resection Bile acid malabsorption syndrome GI consult pending Continue current Management Plan discussed with: Patient Date of Service: Jul 13, 2024 Billing Provider: JOSE GOODMAN MD Common Visit Codes: [id number] INP/OBS CARE(HIGH) JSOE GOODMAN MD Jul 13, 2024 12:21
[2024-07-13] MEDS: POTASSIUM EFFERVESENT TAB 25 MEQ PO ONE (14:58)
[2024-07-13] MEDS: ACETAMINOPHEN 325 MG TAB PO PRN (15:19)
[2024-07-13] MEDS: MORPHINE SULFATE 4 MG/ML SYR/VIAL IV PRN (17:33)
[2024-07-13 18:41] LABS: Basophils # (auto) 0 10 ^3/uL (0-0.2); Basophils % (auto) 0.4 % (0.0-2.0); Eosinophils # (auto) 0 10 ^3/uL (0-0.8); Eosinophils % (auto) 0.4 % (0.0-7.0); Hematocrit 44.5 % (36.0-46.0); Lymphocytes # (auto) 1.7 10 ^3/uL (0.4-5.4); Lymphocytes % (auto) 23.4 % (10.0-50.0); Mean Corpuscular Hemoglobin 29.5 pg (28.0-32.0); Mean Corpuscular Hgb Conc. 33.7 g/dL (32.0-36.0); Mean Corpuscular Volume 87.5 fL (80.0-100.0); Monocytes # (auto) 0.3 10 ^3/uL (0-1.3); Monocytes % (auto) 4.1 % (0.0-12.0); Neutrophils # (auto) 5.2 10 ^3/uL (1.6-8.6); Neutrophils % (auto) 71.7 % (37.0-80.0); Nucleated Red Blood Cells % 0.1 %; Platelet Count (auto) 153 10^3/uL (140-450); Red Blood Cells 5.08 10^6/uL (4.0-5.20); Red Cell Distribution Width 12.5 % (11.8-14.3); White Blood Cell 7.2 10^3/uL (4.4-10.8)
[2024-07-13 19:00] LABS: Albumin 4.3 g/dL (3.2-4.8); Alkaline Phosphatase 103 U/L (46-116); Anion Gap 8 (5-15); Aspartate Aminotransferase 26 U/L (13-40); BUN/Creatinine Ratio 7.5 (10.0-20.0); Bilirubin, Total 0.9 mg/dL (0.2-1.0); Calcium 9.6 mg/dL (8.7-10.4); Carbon Dioxide 26 mmol/L (20-31); Glucose 94 mg/dL (74-106); Lipase 38 U/L (12-53); Potassium 4.2 mmol/L (3.5-5.1); Sodium 145 mmol/L (136-145); Total Protein 6.5 g/dL (5.7-8.2)
[2024-07-13 19:02] LABS: Alanine Aminotransferase 51 U/L (7-40); Blood Urea Nitrogen 5 mg/dL (9-23); Chloride 111 mmol/L (98-107)
--- NOTE | 2024-07-13 22:12 | DVHINCON2 ---
Date of service: Jul 13, [address] Goodman Reason for Consultation Abdominal pain diarrhea History of Present Illness This 38-year-old female with a history of colon cancer with liver Mets status post colon surgery in 2016 and liver surgery of partial resection because of me ts in the liver in 2019 Has been complaints of diarrhea and abdominal pains patient has been on cholestyramine without much relief Patient also has got history of SVT and has takes beta-blockers Apparently has been having abdominal pain and had a sharp pain in the left upper quadrant radiating slightly to the back This is the reason for the GI consult Denies Any hematemesis melena or hematochezia Past Medical History Current cancer of the colon diagnosed in 2016 for which he had surgery and cancer of the liver from metastatic disease from the colon cancer for which she had surgery in 2019 at [facility] History of SVT hypertension OR Past Surgical History Appendectomy cholecystectomy: Colon cancer surgery liver resection for metastatic liver disease hysterectomy Family History: Arthritis G8 MOTHER FH: heart disease G8 FATHER FHx: hypertension G8 FATHER FHx: neuropathy G8 FATHER Family History Noncontributory Social History Denies smoking or drinking Allergies: Coded Allergies: Levofloxacin (Verified Allergy, Severe, chest pain, 02/13/23) Amitriptyline (Verified Allergy, Unknown, chest tightness, hallucinations, 08/03/23) Nitroglycerin (Verified Allergy, Unknown, rash, 08/03/23) Quetiapine (Verified Allergy, Unknown, chest tightness, hallucinations, 08/03/23) Sulfamethoxazole w/Trimethoprim (Verified Allergy, Unknown, 07/26/23) Sumatriptan (Verified Allergy, Unknown, severe palpitations, 08/03/23) Home Meds Active Scripts Diphenhydramine Hcl (BENADRYL CAPSULE) 25 Mg Cp, 25 MG PO QID, #28 CAP Prov:JOSE GOODMAN MD 07/28/23 Labetalol Hcl (Labetalol Hcl) 300 Mg Tab, 1 TAB PO TID, #180 TAB 3 Refills Prov:JOSE GOODMAN MD 07/28/23 Nifedipine (Nifedipine Er) 60 Mg Tab, 1 TAB PO DAILY, #90 TAB 3 Refills Prov:JOSE GOODMAN MD 07/28/23 Reported Medications Divalproex Sodium (Depakote Er) 500 Mg Tab, 1 TAB PO BID, #60 TAB 2 Refills 07/11/24 Divalproex Sodium (Depakote Er) 250 Mg Tab, 1 TAB PO QPM, #30 TAB 2 Refills 07/11/24 Temazepam (Restoril) 30 Mg Cap, 1 CAP PO QPM, #30 CAP 1 Refill 07/11/24 Hydrocortisone Base (Hydrocortisone) 2.5 % Oin, TOP BID, #60 GRAMS 1 Refill 07/11/24 Metoprolol Tartrate (Metoprolol Tartrate) 25 Mg Tab, 1 TAB PO BID, #60 TAB 5 Refills 07/11/24 Cholecalciferol (VITAMIN D3) 2,000 Unit Tab, 1 TAB PO DAILY, #30 TAB 5 Refills 07/27/23 Omeprazole Magnesium (Omeprazole) 20 Mg Tab, 20 MG PO DAILY, TAB 07/27/23 Multiple Vitamin (Multivitamins) Tab, 1 TAB PO DAILY, #90 TAB 3 Refills 07/27/23 Ascorbic Acid (VITAMIN C TABLET) 500 Mg Tb, 1 TAB PO DAILY, #30 TAB 3 Refills 07/27/23 Magnesium Oxide (Mg Supplement (MAGNESIUM) 400 Mg Cap, 400 MG PO, CAP 07/27/23 Pregabalin (Pregabalin) 225 Mg Cap, 1 CAP PO TID 07/26/23 Tizanidine HCl (Tizanidine Hydrochloride) 2 Mg Cap, 1 CAP PO HS 07/26/23 Discontinued Reported Medications Methylprednisolone Sod Succ (Solu-Medrol) 40 Mg Inj, 40 MG IJ, INJ 07/27/23 Hydromorphone Hcl (Dilaudid) 8 Mg Tab, 1 TAB PO DAILYPRN PRN for PAIN, #180 TAB 07/27/23 Fentanyl (Fentanyl) 25 Mcg/Hr Dis, 25 MCG PO, DIS 07/27/23 Current Medications Current Medications Medications (Trade) Dose Ordered Sig/Rivka Route PRN Reason Start Time Stop Time Status Last Admin Hydrocortisone (Cortef Tablet) 15 mg DAILY PO 07/13/24 10:00 07/13/24 11:30 Divalproex Sodium (Depakote "Dr" Tablet) 250 mg DAILY PO 07/13/24 10:00 07/13/24 10:19 Ketorolac Tromethamine (Toradol Injection) 30 mg Q6HPRN PRN IV MODERATE PAIN (4-6 PAIN SCALE) 07/13/24 13:50 07/18/24 13:49 Hold Morphine Sulfate 4 mg Q6HPRN PRN IV MODERATE PAIN (4-6 PAIN SCALE) 07/13/24 16:45 07/13/24 17:33 Review of Systems Noncontributory Vital Signs Vital Signs Date Time Temp Pulse Resp B/P (MAP) Pulse Ox O2 Delivery O2 Flow Rate FiO2 07/13/24 21:46 71 112/66 07/13/24 18:03 17 07/13/24 16:46 97.9 99 97.9 07/13/24 08:00 Room Air* 0 21 Physical Exam Pe Physical examination unremarkable otherwise HEENT examination no pallor or icterus Lungs clear Cardiovascular Soft no tenderness except minimally in the left upper quadrant no rigidity no gu arding bowel sounds no distention Extremities no edema Labs/Diagnostic Data Labs Test 07/13/24 18:09 07/12/24 08:58 07/12/24 00:00 07/11/24 11:01 Range/Units White Blood Count 7.2 4.4-10.8 10^3/uL Red Blood Count 5.08 4.0-5.20 10^6/uL Hemoglobin 15.0 12.2-16.2 g/dL Hematocrit 44.5 # 36.0-46.0 % Mean Corpuscular Volume 87.5 80.0-100.0 fL Mean Corpuscular Hemoglobin 29.5 28.0-32.0 pg Mean Corpuscular Hemoglobin Concent 33.7 32.0-36.0 g/dL Red Cell Distribution Width 12.5 11.8-14.3 % Platelet Count 153 140-450 10^3/uL Mean Platelet Volume 9.4 6.9-10.8 fL Neutrophils (%) (Auto) 71.7 37.0-80.0 % Lymphocytes (%) (Auto) 23.4 10.0-50.0 % Monocytes (%) (Auto) 4.1 0.0-12.0 % Eosinophils (%) (Auto) 0.4 0.0-7.0 % Basophils (%) (Auto) 0.4 0.0-2.0 % Neutrophils # (Auto) 5.2 1.6-8.6 10 ^3/uL Lymphocytes # (Auto) 1.7 0.4-5.4 10 ^3/uL Monocytes # (Auto) 0.3 0-1.3 10 ^3/uL Eosinophils # (Auto) 0 0-0.8 10 ^3/uL Basophils # (Auto) 0 0-0.2 10 ^3/uL Nucleated Red Blood Cells 0.1 % Sodium Level 145 136-145 mmol/L Potassium Level 4.2 3.5-5.1 mmol/L Chloride Level 111 H 98-107 mmol/L Carbon Dioxide Level 26 20-31 mmol/L Anion Gap 8 5-15 Blood Urea Nitrogen 5 L 9-23 mg/dL Creatinine 0.67 0.550-1.02 mg/dL Glomerular Filtration Rate Calc 115 >90 mL/min BUN/Creatinine Ratio 7.5 L 10.0-20.0 Serum Glucose 94 74-106 mg/dL Calcium Level 9.6 8.7-10.4 mg/dL Total Bilirubin 0.9 0.2-1.0 mg/dL Aspartate Amino Transferase (AST) 26 13-40 U/L Alanine Aminotransferase (ALT) 51 H 7-40 U/L Alkaline Phosphatase 103 46-116 U/L Total Protein 6.5 5.7-8.2 g/dL Albumin 4.3 3.2-4.8 g/dL Lipase 38 12-53 U/L Free Thyroxine Index 2.2 1.2-4.9 Thyroxine (T4) 7.8 4.5-12.0 ug/dL Triiodothyronine (T3) Uptake 28 24-39 % Digoxin Level < 0.14 L 0.8-2 ng/mL Urine Color Yellow Yellow Urine Clarity Clear Clear Urine pH 5.5 5.0-9.0 Urine Specific [place] 1.025 1.001-1.035 Urine Protein Trace H Negative Urine Ketones Negative Negative Urine Blood Negative Negative /uL Urine Nitrite Negative Negative Urine Bilirubin Negative Negative Urine Urobilinogen Normal Negative mg/dL Urine Leukocyte Esterase Negative Negative /uL Urine RBC <1 0 - 4 /hpf Urine WBC 1 0 - 5 /hpf Urine Squamous Epithelial Cells Few <5 /hpf Urine Bacteria None seen None Seen /hpf Urine Mucus Few None Seen Urine Yeast (Budding) Occasional None Seen /hpf Urine Glucose Normal Normal mg/dL Troponin I High Sensitivity < 3 L </=34 ng/L Test 07/11/24 08:03 07/11/24 08:02 Range/Units Urine Opiates Screen Neg NEGATIVE Urine Fentanyl Screen Neg NEGATIVE Urine Barbiturates Screen Neg NEGATIVE Urine Phencyclidine Screen Neg NEGATIVE Urine Amphetamines Screen Neg NEGATIVE Urine Benzodiazepines Screen Pos NEGATIVE Urine Cocaine Screen Neg NEGATIVE Urine Cannabinoids Screen Neg NEGATIVE Prothrombin Time 10.7 9.3-11.8 sec Prothrombin Time INR 1.01 0.9-1.15 Activated Partial Thromboplast Time 27.3 24.5-34.5 SEC Triglycerides Level 294 H < 150 mg/dL Cholesterol Level 159 < 200 mg/dL LDL Cholesterol 72 < 100 mg/dL HDL Cholesterol 37 L 40-59 mg/dL Thyroid Stimulating Hormone (TSH) 0.46 L 0.55-4.78 uIU/mL Assessment 38-year-old admitted because of the abdominal pain patient has got colon cancer with for which she had surgery in 2016 and 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 Now with complaints of diarrhea was told could be from bile acid malabsorption and was put on cholestyramine with some relief but unable to keep cholestyramine because of scheduling time of the dosages since she has to take med beta blockers for SVT apparently Complaint of abdominal pain in the left upper quadrant which was sharp radiating to the back The examination grossly unremarkable except for mild tenderness in the left upper quadrant no masses felt no rigidity no guarding no distention Colon cancer with a history of liver Mets abdominal pain and diarrhea of undetermined etiology possibility of bile acid malabsorption can not be excluded but other etiologies also has to be excluded Plan/Recommendation We will recommend CT scan of the abdomen and pelvis with oral and IV contrast as soon as possible Lipase and CMP Cholestyramine for now and depending upon the CT results may need further evaluation and treatment as necessary Thank you Dr. Swanson Plan discussed with: Patient ALEC SWANSON MD Jul 13, 2024 22:12
[2024-07-14] VITALS (8 sets, daily range): BP systolic 103–129; BP diastolic 66–81; PULSE 55–69; RESP 16–20; TEMP 97.4–98.7; O2SAT 96–100
--- NOTE | 2024-07-14 07:47 | DVHPN2 ---
Progress Note - Dictate Date Seen: Jul 14, 2024 Medical Necessity Reason Pt with a Central, PICC or Fol: No vital signs Vital Sign Date Time Temp Pulse Resp B/P (MAP) Pulse Ox O2 Delivery O2 Flow Rate FiO2 07/14/24 07:00 68 112/72 07/14/24 05:00 97.9 18 100 97.9 07/13/24 20:00 Room Air* 0 21 Total Intake and Output 07/13/24 07/13/24 07/14/24 15:00 23:00 07:00 Intake Total 300 ml 1018 ml Balance 300 ml 1018 ml medications Current Medications Medications Dose Ordered Sig/Rivka Route Start Time Stop Time Status Last Admin Dose Admin Sodium Chloride 1,000 ml @ 75 mls/hr [id number] IV 07/11/24 14:45 07/13/24 20:05 75 MLS/HR Aspirin 325 mg DAILY PO 07/12/24 10:00 UNV Acetaminophen 650 mg Q6HP PRN PO 07/11/24 14:45 07/13/24 21:53 650 MG Ondansetron HCl 4 mg Q4HP PRN IV 07/11/24 14:45 07/13/24 20:34 4 MG Ascorbic Acid 500 mg DAILY PO 07/12/24 10:00 07/13/24 10:20 500 MG Gemfibrozil 600 mg BID PO 07/11/24 22:00 07/13/24 21:46 600 MG Multivitamins 1 tab DAILY PO 07/12/24 10:00 07/13/24 10:19 1 TAB Cholecalciferol 2,000 unit DAILY PO 07/12/24 10:00 07/13/24 10:20 2,000 UNIT Pantoprazole Sodium 40 mg DAILY PO 07/12/24 10:00 07/13/24 10:20 40 MG Pregabalin 225 mg TID PO 07/11/24 15:19 Hold Patient Own Medication 1 cap HS PO 07/11/24 22:00 Temazepam 30 mg HSPRN PRN PO 07/11/24 22:45 07/13/24 21:47 30 MG Hydrocortisone 15 mg DAILY PO 07/13/24 10:00 07/13/24 11:30 15 MG Divalproex Sodium 250 mg DAILY PO 07/13/24 10:00 07/13/24 10:19 250 MG Divalproex Sodium 500 mg HS PO 07/12/24 22:00 07/13/24 21:46 500 MG Metoprolol Tartrate 25 mg TID PO 07/12/24 22:00 07/14/24 06:00 25 MG Ketorolac Tromethamine 30 mg Q6HPRN PRN IV 07/13/24 13:50 07/18/24 13:49 Hold Morphine Sulfate 4 mg Q6HPRN PRN IV 07/13/24 16:45 07/14/24 01:18 4 MG Diphenhydramine HCl 25 mg Q4HP PRN IV 07/14/24 07:15 UNV laboratory and microbiology Laboratory Tests 07/13/24 18:09 Test 07/13/24 18:09 Range/Units Serum Glucose 94 74-106 mg/dL Assessment/Plan Patient is a 38-year-old female who presented to the hospital for 1 week of feeling weak and lightheadedness accompanied with severe diarrhea and occasional chest discomfort. Cardiology is involved for cardiac aspects of care. She is known to our practice from outside and before. Does have history of SVT for which takes metoprolol. She was recently started in low-dose digoxin. It is known that she does have rheumatoid arthritis and was on IVIG for its management. It seems that around a month ago/6 weeks ago she had 1 course of IV IVIG which resulted in significant side effects. She is told by outside physicians that she should stop IVIG. Reportedly she did have repeated abdominal pains swellings. She mentions that she feels occasional palpitation (mostly when she stands up and walks around). It is of note that she mentions that she is experiencing repeated diarrhea for the past few weeks. She mentions that she has watery stools up to 6 to 7 times a day. Not in acute distress. Mucosa is pink and wet. No carotid bruit. No goiter. Not using accessory muscles of breathing. Lungs are clear to auscultation. Cardiac: Regular, no thrill/gallop. Abdomen is soft. Bowel sound is positive. There is no gross mass/hepatomegaly. Extremities do not reveal edema. Dorsalis pedis is 2+ bilateral Past medical history includes old history of colon cancer, hypertension, SVT (on metoprolol as outpatient), endometriosis, rheumatoid arthritis, Iglesias syndrome, history of multiple abdominal surgeries, previously on IVIG and questionable old myocardial infarction (seen/reported in a previous nuclear stress test). She actively smokes cigarettes. Denies drug abuse. Echocardiogram of August 2023 reported ejection fraction of 60-65%, normal diastolic, mobile interatrial septum, trace TR/MR and right ventricular systolic pressure of less than 35 mm Hg Creatinine: 0.71 - 0.65 - 0.65 - 0.67 Potassium: 4.1 - 3.7 - 3.3 - 4.2 TSH: 0.46 Troponin (high sensitive): 4 - <3 - <3 Digoxin level: < 0.14 Urine toxicology was positive for benzodiazepine Chest x-ray reported: IMPRESSION: 1. No acute cardiopulmonary disease. EKG revealed sinus rhythm with no ST-T changes Tele reveals sinus rhythm Echocardiogram reported: Left ventricle: Left ventricle was normal size with normal systolic function. LVEF was around 65%. There was no gross wall motion abnormality. Left ventricular diastolic function was considered normal. Right ventricle was normal size with normal systolic function. Both atria were normal size. Mobile intra-atrial septum was observed. Aortic valve was trileaflet. There was no aortic insufficiency/stenosis. Mild mitral valve prolapse with minimal regurgitation was observed. There was no tricuspid regurgitation. There was no pulmonary valve insufficiency. There was no pericardial effusion. As there was no good tricuspid regurgitation jet, right ventricular systolic pressure could not be estimated. There was no echocardiographic evidence for pulmonary hypertension. Patient is a 38-year-old female who presented with generalized weakness and lightheadedness. She was concerned about palpitations. She was concerned about fast heart rate when standing up. It is of note that patient has been having significant and repeated diarrhea. She mentions that she has had chronic diarrhea since she had treatment for colon cancer. Diarrhea has increased since the last treatment for IVIG. Clinically, tachycardia has been sinus tachycardia and may have been secondary to low intravascular volume. It is of note that the patient does have history of SVT for which takes metoprolol. But SVT usually does not changed by patient's position. Most likely, the patient does have low intravascular volume as the etiology for repeated tachycardia during stand up and walking around. Is seen by GI Palpitation, when standing up Diarrhea, repeated History of colon cancer History of IVIG treatment, had side effects secondary to that SVT, history of Rheumatoid arthritis Iglesias syndrome Cardiac suggestion for management: Manage on telemetry Fluid resuscitation Follow-up electrolytes and kidney function tests and correct abnormalities. Keep potassium above 4 and magnesium above 2. Metoprolol tartrate at 25 mg t.i.d. for now Follow up suggestions of GI (CT) Further evaluation and management depends on the above and clinical course A total of 55 minutes was spent reviewing the patient record, examining the patient, making a diagnostic and therapeutic plan, discussing this plan with medical personnel, following up on diagnostic studies and following the patient for clinical stability excluding any and all procedures. At least 50% of this time was spent in direct, [id number] contact. Thank you for allowing me to participate in this patient's care. Further recommendations will depend on patient's clinical course. Please do not hesitate to contact me if you have any questions or concerns. This medical document was created using electronic medical record system with [employer] computerized dictation system. Although this document has been carefully reviewed, there may still be some phonetic and typographical errors. These areas are purely typographical due to the imperfection of the software programs, and do not reflect any compromise in the patient's medical care. Plan discussed with: Patient, Other (nurse) YOLI DOLL MD Jul 14, 2024 07:47
[2024-07-14] MEDS: diphenhdrAMINE HCL 50 MG/1 ML VL IV PRN (08:59)
--- NOTE | 2024-07-14 10:15 | DVHPN2 ---
Reviewed: Care Plan, H&P, Labs, Medications, Previous Orders, Radiology Changes from previous H/P or p: No Changes Eyes: No Pain, No Vision change, No Conjunctivae inflammation, No Eyelid inflammation, No Other, No Redness ENT: No Ear pain, No Ear discharge, No Nose pain, No Nose discharge, No Nose congestion, No Mouth pain, No Mouth swelling, No Throat pain, No Throat swelling, No Other Cardiovascular: Chest Pain; No Palpitations, No Orthopnea, No Paroxysmal Noc. Dyspnea, No Edema; Lt Headedness; No Other Respiratory: No Cough, No Dry, No Shortness of breath, No SOB with excertion, No Wheezing, No Hemoptysis, No Pleuritic Pain, No Sputum, No Other Gastrointestinal: No Nausea, No Vomiting, No Abdominal Pain, No Diarrhea, No Constipation, No Melena, No Hematochezia, No Other Genitourinary: No Dysuria, No Frequency, No Incontinence, No Hematuria, No Retention, No Other Musculoskeletal: No other, No neck pain, No shoulder pain, No arm pain, No back pain, No hand pain, No leg pain, No foot pain Skin: No Rash, No Lesions, No Jaundice, No Bruising, No Other Objective Vitals Vital Signs Date Time Temp Pulse Resp B/P (MAP) Pulse Ox O2 Delivery O2 Flow Rate FiO2 07/14/24 09:09 64 17 114/70 07/14/24 05:00 97.9 100 97.9 07/13/24 20:00 Room Air* 0 21 Intake/Output Intake and Output 07/14/24 07:00 Intake Total 1318 ml Balance 1318 ml Intake Oral 1318 ml # Voids 7 # Bowel Movements 6 Medications Current Medications Medications Dose Ordered Sig/Rivka Route Start Time Stop Time Status Last Admin Dose Admin Sodium Chloride 1,000 ml @ 75 mls/hr [id number] IV 07/11/24 14:45 07/14/24 08:59 75 MLS/HR Aspirin 325 mg DAILY PO 07/12/24 10:00 UNV Acetaminophen 650 mg Q6HP PRN PO 07/11/24 14:45 07/13/24 21:53 650 MG Ondansetron HCl 4 mg Q4HP PRN IV 07/11/24 14:45 07/13/24 20:34 4 MG Ascorbic Acid 500 mg DAILY PO 07/12/24 10:00 07/14/24 09:09 500 MG Gemfibrozil 600 mg BID PO 07/11/24 22:00 07/14/24 09:09 600 MG Multivitamins 1 tab DAILY PO 07/12/24 10:00 07/14/24 09:09 1 TAB Cholecalciferol 2,000 unit DAILY PO 07/12/24 10:00 07/14/24 09:09 2,000 UNIT Pantoprazole Sodium 40 mg DAILY PO 07/12/24 10:00 07/14/24 09:09 40 MG Pregabalin 225 mg TID PO 07/11/24 15:19 Hold Patient Own Medication 1 cap HS PO 07/11/24 22:00 Temazepam 30 mg HSPRN PRN PO 07/11/24 22:45 07/13/24 21:47 30 MG Hydrocortisone 15 mg DAILY PO 07/13/24 10:00 07/14/24 09:30 15 MG Divalproex Sodium 250 mg DAILY PO 07/13/24 10:00 07/14/24 09:09 250 MG Divalproex Sodium 500 mg HS PO 07/12/24 22:00 07/13/24 21:46 500 MG Metoprolol Tartrate 25 mg TID PO 07/12/24 22:00 07/14/24 06:00 25 MG Ketorolac Tromethamine 30 mg Q6HPRN PRN IV 07/13/24 13:50 07/18/24 13:49 Hold Morphine Sulfate 4 mg Q6HPRN PRN IV 07/13/24 16:45 07/14/24 09:09 4 MG Diphenhydramine HCl 25 mg Q4HP PRN IV 07/14/24 07:15 07/14/24 08:59 25 MG Laboratory Results Laboratory Tests 07/13/24 18:09 Chemistry Test 07/13/24 18:09 Albumin 4.3 g/dL (3.2-4.8) Calcium Level 9.6 mg/dL (8.7-10.4) Total Protein 6.5 g/dL (5.7-8.2) Lipid panel Test 07/13/24 18:09 Lipase 38 U/L (12-53) LFT Test 07/13/24 18:09 Alanine Aminotransferase (ALT) 51 U/L (7-40) H Alkaline Phosphatase 103 U/L (46-116) Aspartate Amino Transferase (AST) 26 U/L (13-40) Total Bilirubin 0.9 mg/dL (0.2-1.0) Urinalysis Test 07/12/24 00:00 Urine Color Yellow (Yellow) Urine Clarity Clear (Clear) Urine pH 5.5 (5.0-9.0) Urine Specific [place] 1.025 (1.001-1.035) Urine Protein Trace (Negative) H Urine Ketones Negative (Negative) Urine Blood Negative /uL (Negative) Urine Nitrite Negative (Negative) Urine Bilirubin Negative (Negative) Urine Urobilinogen Normal mg/dL (Negative) Urine Leukocyte Esterase Negative /uL (Negative) Urine RBC <1 /hpf (0 - 4) Urine WBC 1 /hpf (0 - 5) Urine Squamous Epithelial Cells Few /hpf (<5) Urine Bacteria None seen /hpf (None Seen) Urine Mucus Few (None Seen) Urine Yeast (Budding) Occasional /hpf (None Urine Glucose Normal mg/dL (Normal) Labs and/or images reviewed: Labs reviewed by me, Image(s) reviewed by me Assessment/Plan Assessment/Plan Covering for Dr Reese Cardiac arrhythmia, consult by Dr. Denney appreciated History of SVT Hypertension AR Cancer Appendectomy History of Cholecystectomy Hysterectomy liver resection colon resection Bile acid malabsorption syndrome GI consult by Dr. Wilcox appreciated, CT abdomen pelvis with IV and oral contrast result pending Chronic pain syndrome Morphine 4 mg IV q.4 hours Continue current Management Plan discussed with: Patient My Orders Orders - JOSE GOODMAN MD Procedure Category Date Status Time * Gi [facility] [employer] CONS 07/13/24 Transmitted 12:21 Ketorolac Injection PHA 07/13/24 In Process (Toradol Injection) 13:50 Morphine Sulfate PHA 07/13/24 In Process Injection 16:45 Date of Service: Jul 14, 2024 Billing Provider: JOSE GOODMAN MD Common Visit Codes: [id number] INP/OBS CARE(HIGH) JOSE GOODMAN MD Jul 14, 2024 10:15
[2024-07-14] MEDS ORDERED: GASTROGRAFIN 30 ML SOL ONE (10:24)
--- NOTE | 2024-07-14 10:32 | DVH ---
Exam: CT CT AB PEL WO CON-NO ORAL OR IV History: LUQ pain Comparison Study: None Technique: Multidetector spiral CT of the abdomen was performed from lung bases to pubic symphysis. Imaging was performed without IV contrast. Axial, coronal and sagittal multiplanar reformats were ob tained from the axial data set by the technologist. Radiation Dose : 1. Abdomen/Pelvis: CTDIvol 8.7 mGy, DLP 501.36 mGy*cm. Findings: Evaluation of solid organs is limited due to lack of intravenous contrast use. Lung Bases: No acute or significant lung base finding. Normal heart size. No pleural or pericardial effusion. Liver: Postsurgical changes along the anterior margin of the liver. No evidence of focal liver lesion s. Gallbladder and Biliary Tree: Unremarkable Spleen: Unremarkable Pancreas: The pancreas is grossly normal in appearance. Adrenal Glands: Unremarkable Kidneys: Kidneys are grossly normal without calculi or hydronephrosis. Bladder: Grossly unremarkable for degree of distention. Bowel: The stomach is grossly normal in appearance. Small bowel and colon are normal in caliber and d istribution. The appendix is not visualized; however, no secondary findings of acute appendicitis id entified. Postsurgical changes are noted in the colon near the hepatic flexure. Ascites: Absent Lymphadenopathy: No mesenteric, retroperitoneal or periportal lymphadenopathy. Abdominal Wall and Mesentery: A drain/ tube is noted in the upper abdomen with one tip near the pancr eatic head and the other in the left anterior abdominal mesentery. Vasculature: The visualized abdominal aorta is normal in size and caliber. Evaluation of abdominal a nd pelvic vessels is limited due to lack of intravenous contrast. Pelvic Organs: Unremarkable Musculoskeletal: No aggressive focal bony lesions, acute fractures or dislocation. IMPRESSION: 1. No acute abdominal or pelvic findings. 2. Postsurgical changes in the abdomen as described above. Radiation optimization: All CT scans at this facility use at least one of these dose optimization halina hniques: automated exposure control mA and/or kV adjustment per patient size (includes targeted exam s where dose is matched to clinical indication) or iterative reconstruction.
[2024-07-14] MEDS: CHOLESTYRAMINE 4 GM POWDER PO SCH (11:37)
--- NOTE | 2024-07-14 13:31 | DVH ---
Exam: CT CT AB PEL WITH ORAL CON ONLY History: LUQ pain Comparison Study: CT CT AB PEL WO CON-NO ORAL OR IV on DOS: 07/14/24 Technique: Multidetector spiral CT of the abdomen was performed from lung bases to pubic symphysis. Imaging was performed without IV contrast and with oral contrast. Axial, coronal and sagittal multip lanar reformats were obtained from the axial data set by the technologist. Radiation Dose : 1. Abdomen/Pelvis: CTDIvol 7.8 mGy, DLP 427.0 mGy*cm. Findings: Evaluation of solid organs is limited due to lack of intravenous contrast use. Lung Bases: Minimal bibasilar atelectasis. Liver: Postsurgical changes along the anterior margin of the liver. Gallbladder and Biliary Tree: Gallbladder is surgically absent. Spleen: Unremarkable Pancreas: The pancreas is grossly normal in appearance. Adrenal Glands: Unremarkable Kidneys: Kidneys are grossly normal without calculi or hydronephrosis. Bladder: Grossly unremarkable for degree of distention. Bowel: The stomach is grossly normal in appearance. Small bowel and colon are normal in caliber and d istribution. The appendix is not visualized; however, no secondary findings of acute appendicitis id entified. Postsurgical changes of the colon near the hepatic flexure. There is a moderate amount colo martín stool within the rectum and sigmoid colon. Ascites: Absent Lymphadenopathy: No mesenteric, retroperitoneal or periportal lymphadenopathy. Abdominal Wall and Mesentery: A drain/ tube is noted in the upper abdomen with one tip near the pancr eatic head in the other in the left anterior abdominal mesentery. Vasculature: The visualized abdominal aorta is normal in size and caliber. Evaluation of abdominal a nd pelvic vessels is limited due to lack of intravenous contrast. Pelvic Organs: Unremarkable Musculoskeletal: No aggressive focal bony lesions, acute fractures or dislocation. IMPRESSION: 1. No evidence of bowel obstruction. Oral contrast material has reached the colon. 2. Stable postsurgical changes. No evidence of contrast leak. Radiation optimization: All CT scans at this facility use at least one of these dose optimization halina hniques: automated exposure control mA and/or kV adjustment per patient size (includes targeted exam s where dose is matched to clinical indication) or iterative reconstruction.
--- NOTE | 2024-07-14 14:45 | DVHPN2 ---
Progress Note - Dictate Date Seen: Jul 14, 2024 Medical Necessity Reason Pt with a Central, PICC or Fol: No Subjective And still with complaints of abdominal pain diarrhea is much better vital signs Vital Sign Date Time Temp Pulse Resp B/P (MAP) Pulse Ox O2 Delivery O2 Flow Rate FiO2 07/14/24 13:32 63 131/78 07/14/24 13:00 97.4 20 100 97.4 07/14/24 08:00 Room Air* 0 21 Total Intake and Output 07/13/24 07/13/24 07/14/24 15:00 23:00 07:00 Intake Total 300 ml 1018 ml Balance 300 ml 1018 ml medications Current Medications Medications Dose Ordered Sig/Irvka Route Start Time Stop Time Status Last Admin Dose Admin Sodium Chloride 1,000 ml @ 75 mls/hr [id number] IV 07/11/24 14:45 07/14/24 08:59 75 MLS/HR Aspirin 325 mg DAILY PO 07/12/24 10:00 UNV Acetaminophen 650 mg Q6HP PRN PO 07/11/24 14:45 07/13/24 21:53 650 MG Ondansetron HCl 4 mg Q4HP PRN IV 07/11/24 14:45 07/14/24 13:16 4 MG Ascorbic Acid 500 mg DAILY PO 07/12/24 10:00 07/14/24 09:09 500 MG Gemfibrozil 600 mg BID PO 07/11/24 22:00 07/14/24 09:09 600 MG Multivitamins 1 tab DAILY PO 07/12/24 10:00 07/14/24 09:09 1 TAB Cholecalciferol 2,000 unit DAILY PO 07/12/24 10:00 07/14/24 09:09 2,000 UNIT Pantoprazole Sodium 40 mg DAILY PO 07/12/24 10:00 07/14/24 09:09 40 MG Pregabalin 225 mg TID PO 07/11/24 15:19 Hold Patient Own Medication 1 cap HS PO 07/11/24 22:00 Temazepam 30 mg HSPRN PRN PO 07/11/24 22:45 07/13/24 21:47 30 MG Hydrocortisone 15 mg DAILY PO 07/13/24 10:00 07/14/24 09:30 15 MG Divalproex Sodium 250 mg DAILY PO 07/13/24 10:00 128/24 09:09 250 MG Divalproex Sodium 500 mg HS PO 07/12/24 22:00 07/13/24 21:46 500 MG Metoprolol Tartrate 25 mg TID PO 07/12/24 22:00 07/14/24 13:32 25 MG Ketorolac Tromethamine 30 mg Q6HPRN PRN IV 07/13/24 13:50 07/18/24 13:49 Hold Morphine Sulfate 4 mg Q6HPRN PRN IV 07/13/24 16:45 07/14/24 09:09 4 MG Diphenhydramine HCl 25 mg Q4HP PRN IV 07/14/24 07:15 07/14/24 08:59 25 MG Cholestyramine Resin 4 gm DAILY@11 PO 07/14/24 11:00 07/14/24 11:37 4 GM objective Abdomen soft no tenderness except minimally in the left upper quadrant no rigidity or guarding laboratory and microbiology Laboratory Tests 07/13/24 18:09 Test 07/13/24 18:09 Range/Units Serum Glucose 94 74-106 mg/dL Assessment/Plan 38-year-old admitted because of the abdominal pain patient has got colon cancer with for which she had surgery in 2016 and 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 Now with complaints of diarrhea was told could be from bile acid malabsorption and was put on cholestyramine with some relief but unable to keep cholestyramine because of scheduling time of the dosages since she has to take med beta blockers for SVT apparently Complaint of abdominal pain in the left upper quadrant which was sharp radiating to the back The examination grossly unremarkable except for mild tenderness in the left upper quadrant no masses felt no rigidity no guarding no distention Colon cancer with a history of liver Mets abdominal pain and diarrhea of undetermined etiology possibility of bile acid malabsorption can not be excluded but other etiologies also has to be excluded Patient still has got some abdominal pain but diarrhea is better Waiting the results of the CT scan with oral and IV contrast We will continue supportive regimen Symptoms persist may need to be referred to a referral center Thank you Dr. Wilcox Plan discussed with: Patient ALEC WILCOX MD Jul 14, 2024 14:45
[2024-07-15] VITALS (8 sets, daily range): BP systolic 114–141; BP diastolic 69–89; PULSE 52–71; RESP 14–20; TEMP 97.3–97.8; O2SAT 97–100
--- NOTE | 2024-07-15 08:19 | DVHPN2 ---
Progress Note - Dictate Date Seen: Jul 15, 2024 Medical Necessity Reason Pt with a Central, PICC or Fol: No vital signs Vital Sign Date Time Temp Pulse Resp B/P (MAP) Pulse Ox O2 Delivery O2 Flow Rate FiO2 07/15/24 07:00 56 18 112/62 07/15/24 05:00 97.5 100 97.5 07/14/24 20:00 Room Air* 0 21 Total Intake and Output 07/14/24 07/14/24 07/15/24 15:00 23:00 07:00 Intake Total 400 ml 1625 ml 1800 ml Balance 400 ml 1625 ml 1800 ml medications Current Medications Medications Dose Ordered Sig/Rivka Route Start Time Stop Time Status Last Admin Dose Admin Sodium Chloride 1,000 ml @ 75 mls/hr [id number] IV 07/11/24 14:45 07/14/24 22:45 75 MLS/HR Aspirin 325 mg DAILY PO 07/12/24 10:00 UNV Acetaminophen 650 mg Q6HP PRN PO 07/11/24 14:45 07/13/24 21:53 650 MG Ondansetron HCl 4 mg Q4HP PRN IV 07/11/24 14:45 07/14/24 13:16 4 MG Ascorbic Acid 500 mg DAILY PO 07/12/24 10:00 07/14/24 09:09 500 MG Gemfibrozil 600 mg BID PO 07/11/24 22:00 07/14/24 22:19 600 MG Multivitamins 1 tab DAILY PO 07/12/24 10:00 07/14/24 09:09 1 TAB Cholecalciferol 2,000 unit DAILY PO 07/12/24 10:00 07/14/24 09:09 2,000 UNIT Pantoprazole Sodium 40 mg DAILY PO 07/12/24 10:00 07/14/24 09:09 40 MG Pregabalin 225 mg TID PO 07/11/24 15:19 Hold Patient Own Medication 1 cap HS PO 07/11/24 22:00 Temazepam 30 mg HSPRN PRN PO 07/11/24 22:45 07/14/24 22:19 30 MG Hydrocortisone 15 mg DAILY PO 07/13/24 10:00 07/14/24 09:30 15 MG Divalproex Sodium 250 mg DAILY PO 07/13/24 10:00 07/14/24 09:09 250 MG Divalproex Sodium 500 mg HS PO 07/12/24 22:00 07/14/24 22:15 500 MG Metoprolol Tartrate 25 mg TID PO 07/12/24 22:00 07/14/24 13:32 25 MG Ketorolac Tromethamine 30 mg Q6HPRN PRN IV 07/13/24 13:50 07/18/24 13:49 Hold Morphine Sulfate 4 mg Q6HPRN PRN IV 07/13/24 16:45 07/15/24 06:30 4 MG Diphenhydramine HCl 25 mg Q4HP PRN IV 07/14/24 07:15 07/15/24 06:30 25 MG Cholestyramine Resin 4 gm DAILY@11 PO 07/14/24 11:00 07/14/24 11:37 4 GM laboratory and microbiology Laboratory Tests 07/13/24 18:09 Test 07/13/24 18:09 Range/Units Serum Glucose 94 74-106 mg/dL Assessment/Plan Patient is a 38-year-old female who presented to the hospital for 1 week of feeling weak and lightheadedness accompanied with severe diarrhea and occasional chest discomfort. Cardiology is involved for cardiac aspects of care. She is known to our practice from outside and before. Does have history of SVT for which takes metoprolol. She was recently started in low-dose digoxin. It is known that she does have rheumatoid arthritis and was on IVIG for its management. It seems that around a month ago/6 weeks ago she had 1 course of IV IVIG which resulted in significant side effects. She is told by outside physicians that she should stop IVIG. Reportedly she did have repeated abdominal pains swellings. She mentions that she feels occasional palpitation (mostly when she stands up and walks around). It is of note that she mentions that she is experiencing repeated diarrhea for the past few weeks. She mentions that she has watery stools up to 6 to 7 times a day. Not in acute distress. Mucosa is pink and wet. No carotid bruit. No goiter. Not using accessory muscles of breathing. Lungs are clear to auscultation. Cardiac: Regular, no thrill/gallop. Abdomen is soft. Bowel sound is positive. There is no gross mass/hepatomegaly. Extremities do not reveal edema. Dorsalis pedis is 2+ bilateral Past medical history includes old history of colon cancer, hypertension, SVT (on metoprolol as outpatient), endometriosis, rheumatoid arthritis, Iglesias syndrome, history of multiple abdominal surgeries, previously on IVIG and questionable old myocardial infarction (seen/reported in a previous nuclear stress test). She actively smokes cigarettes. Denies drug abuse. Echocardiogram of August 2023 reported ejection fraction of 60-65%, normal diastolic, mobile interatrial septum, trace TR/MR and right ventricular systolic pressure of less than 35 mm Hg Creatinine: 0.71 - 0.65 - 0.65 - 0.67 Potassium: 4.1 - 3.7 - 3.3 - 4.2 TSH: 0.46 Troponin (high sensitive): 4 - <3 - <3 Digoxin level: < 0.14 Urine toxicology was positive for benzodiazepine Chest x-ray reported: IMPRESSION: 1. No acute cardiopulmonary disease. Abdomen and pelvic CT revealed: Findings: Evaluation of solid organs is limited due to lack of intravenous contrast use. Lung Bases: Minimal bibasilar atelectasis. Liver: Postsurgical changes along the anterior margin of the liver. Gallbladder and Biliary Tree: Gallbladder is surgically absent. Spleen: Unremarkable Pancreas: The pancreas is grossly normal in appearance. Adrenal Glands: Unremarkable Kidneys: Kidneys are grossly normal without calculi or hydronephrosis. Bladder: Grossly unremarkable for degree of distention. Bowel: The stomach is grossly normal in appearance. Small bowel and colon are normal in caliber and distribution. The appendix is not visualized; however, no secondary findings of acute appendicitis identified. Postsurgical changes of the colon near the hepatic flexure. There is a moderate amount colonic stool within the rectum and sigmoid colon. Ascites: Absent Lymphadenopathy: No mesenteric, retroperitoneal or periportal lymphadenopathy. Abdominal Wall and Mesentery: A drain/ tube is noted in the upper abdomen with one tip near the pancreatic head in the other in the left anterior abdominal mesentery. Vasculature: The visualized abdominal aorta is normal in size and caliber. Evaluation of abdominal and pelvic vessels is limited due to lack of intravenous contrast. Pelvic Organs: Unremarkable Musculoskeletal: No aggressive focal bony lesions, acute fractures or dislocation. IMPRESSION: 1. No evidence of bowel obstruction. Oral contrast material has reached the colon. 2. Stable postsurgical changes. No evidence of contrast leak EKG revealed sinus rhythm with no ST-T changes Tele reveals sinus rhythm Echocardiogram reported: Left ventricle: Left ventricle was normal size with normal systolic function. LVEF was around 65%. There was no gross wall motion abnormality. Left ventricular diastolic function was considered normal. Right ventricle was normal size with normal systolic function. Both atria were normal size. Mobile intra-atrial septum was observed. Aortic valve was trileaflet. There was no aortic insufficiency/stenosis. Mild mitral valve prolapse with minimal regurgitation was observed. There was no tricuspid regurgitation. There was no pulmonary valve insufficiency. There was no pericardial effusion. As there was no good tricuspid regurgitation jet, right ventricular systolic pressure could not be estimated. There was no echocardiographic evidence for pulmonary hypertension. Patient is a 38-year-old female who presented with generalized weakness and lightheadedness. She was concerned about palpitations. She was concerned about fast heart rate when standing up. It is of note that patient has been having significant and repeated diarrhea. She mentions that she has had chronic diarrhea since she had treatment for colon cancer. Diarrhea has increased since the last treatment for IVIG. Clinically, tachycardia has been sinus tachycardia and may have been secondary to low intravascular volume. It is of note that the patient does have history of SVT for which takes metoprolol. But SVT usually does not changed by patient's position. Most likely, the patient does have low intravascular volume as the etiology for repeated tachycardia during stand up and walking around. Is seen by GI Palpitation, when standing up Diarrhea, repeated History of colon cancer History of IVIG treatment, had side effects secondary to that SVT, history of Rheumatoid arthritis Iglesias syndrome Cardiac suggestion for management: Manage on telemetry Follow-up electrolytes and kidney function tests and correct abnormalities. Keep potassium above 4 and magnesium above 2. Metoprolol tartrate at 25 mg t.i.d. for now Keep hydrated Cardiac ramirez, stable and can be followed as outpatient Further evaluation and management depends on the above and clinical course A total of 55 minutes was spent reviewing the patient record, examining the patient, making a diagnostic and therapeutic plan, discussing this plan with medical personnel, following up on diagnostic studies and following the patient for clinical stability excluding any and all procedures. At least 50% of this time was spent in direct, [id number] contact. Thank you for allowing me to participate in this patient's care. Further recommendations will depend on patient's clinical course. Please do not hesitate to contact me if you have any questions or concerns. This medical document was created using electronic medical record system with [employer] computerized dictation system. Although this document has been carefully reviewed, there may still be some phonetic and typographical errors. These areas are purely typographical due to the imperfection of the software programs, and do not reflect any compromise in the patient's medical care. Plan discussed with: Patient, Other (nurse) YOLI DOLL MD Jul 15, 2024 08:19
--- NOTE | 2024-07-15 11:11 | DVHPN2 ---
Reviewed: Care Plan, H&P, Labs, Medications, Previous Orders, Radiology Changes from previous H/P or p: No Changes Eyes: No Pain, No Vision change, No Conjunctivae inflammation, No Eyelid inflammation, No Other, No Redness ENT: No Ear pain, No Ear discharge, No Nose pain, No Nose discharge, No Nose congestion, No Mouth pain, No Mouth swelling, No Throat pain, No Throat swelling, No Other Cardiovascular: Chest Pain; No Palpitations, No Orthopnea, No Paroxysmal Noc. Dyspnea, No Edema; Lt Headedness; No Other Respiratory: No Cough, No Dry, No Shortness of breath, No SOB with excertion, No Wheezing, No Hemoptysis, No Pleuritic Pain, No Sputum, No Other Gastrointestinal: No Nausea, No Vomiting, No Abdominal Pain, No Diarrhea, No Constipation, No Melena, No Hematochezia, No Other Genitourinary: No Dysuria, No Frequency, No Incontinence, No Hematuria, No Retention, No Other Musculoskeletal: No other, No neck pain, No shoulder pain, No arm pain, No back pain, No hand pain, No leg pain, No foot pain Skin: No Rash, No Lesions, No Jaundice, No Bruising, No Other Objective Vitals Vital Signs Date Time Temp Pulse Resp B/P (MAP) Pulse Ox O2 Delivery O2 Flow Rate FiO2 07/15/24 09:00 97.5 63 18 123/70 (87) 98 97.5 07/15/24 08:00 Room Air* 0 21 Intake/Output Intake and Output 07/15/24 07:00 Intake Total 3825 ml Balance 3825 ml Intake Oral 3825 ml # Voids 10 # Bowel Movements 8 Medications Current Medications Medications Dose Ordered Sig/Rivka Route Start Time Stop Time Status Last Admin Dose Admin Sodium Chloride 1,000 ml @ 75 mls/hr [id number] IV 07/11/24 14:45 07/14/24 22:45 75 MLS/HR Aspirin 325 mg DAILY PO 07/12/24 10:00 UNV Acetaminophen 650 mg Q6HP PRN PO 07/11/24 14:45 07/13/24 21:53 650 MG Ondansetron HCl 4 mg Q4HP PRN IV 07/11/24 14:45 07/14/24 13:16 4 MG Ascorbic Acid 500 mg DAILY PO 07/12/24 10:00 07/15/24 09:44 500 MG Gemfibrozil 600 mg BID PO 07/11/24 22:00 07/15/24 09:43 600 MG Multivitamins 1 tab DAILY PO 07/12/24 10:00 07/15/24 09:43 1 TAB Cholecalciferol 2,000 unit DAILY PO 07/12/24 10:00 07/15/24 09:44 2,000 UNIT Pantoprazole Sodium 40 mg DAILY PO 07/12/24 10:00 07/15/24 09:44 40 MG Pregabalin 225 mg TID PO 07/11/24 15:19 Hold Patient Own Medication 1 cap HS PO 07/11/24 22:00 Temazepam 30 mg HSPRN PRN PO 07/11/24 22:45 07/14/24 22:19 30 MG Hydrocortisone 15 mg DAILY PO 07/13/24 10:00 07/15/24 09:37 15 MG Divalproex Sodium 250 mg DAILY PO 07/13/24 10:00 07/15/24 09:43 250 MG Divalproex Sodium 500 mg HS PO 07/12/24 22:00 07/14/24 22:15 500 MG Metoprolol Tartrate 25 mg TID PO 07/12/24 22:00 07/14/24 13:32 25 MG Ketorolac Tromethamine 30 mg Q6HPRN PRN IV 07/13/24 13:50 07/18/24 13:49 Hold Morphine Sulfate 4 mg Q6HPRN PRN IV 07/13/24 16:45 07/15/24 06:30 4 MG Diphenhydramine HCl 25 mg Q4HP PRN IV 07/14/24 07:15 07/15/24 06:30 25 MG Cholestyramine Resin 4 gm DAILY@11 PO 07/14/24 11:00 07/14/24 11:37 4 GM Laboratory Results Laboratory Tests 07/13/24 18:09 Urinalysis Test 07/12/24 00:00 Urine Color Yellow (Yellow) Urine Clarity Clear (Clear) Urine pH 5.5 (5.0-9.0) Urine Specific [place] 1.025 (1.001-1.035) Urine Protein Trace (Negative) H Urine Ketones Negative (Negative) Urine Blood Negative /uL (Negative) Urine Nitrite Negative (Negative) Urine Bilirubin Negative (Negative) Urine Urobilinogen Normal mg/dL (Negative) Urine Leukocyte Esterase Negative /uL (Negative) Urine RBC <1 /hpf (0 - 4) Urine WBC 1 /hpf (0 - 5) Urine Squamous Epithelial Cells Few /hpf (<5) Urine Bacteria None seen /hpf (None Seen) Urine Mucus Few (None Seen) Urine Yeast (Budding) Occasional /hpf (None Urine Glucose Normal mg/dL (Normal) Labs and/or images reviewed: Labs reviewed by me, Image(s) reviewed by me Assessment/Plan Assessment/Plan Covering for Dr Reese Cardiac arrhythmia, consult by Dr. Denney appreciated History of SVT Hypertension [place] Cancer Appendectomy History of Cholecystectomy Hysterectomy liver resection colon resection Bile acid malabsorption syndrome GI consult by Dr. Wilcox appreciated, CT abdomen pelvis with IV and oral contrast result pending Chronic pain syndrome Morphine 4 mg IV q.4 hours Continue current Management Time Spent 45 minute Plan discussed with: Patient Date of Service: Jul 15, 2024 Billing Provider: JOSE GOODMAN MD Common Visit Codes: [id number] INP/OBS CARE(HIGH) JOSE GOODMAN MD Jul 15, 2024 11:11
[2024-07-15] MEDS: KETOROLAC TROMETH 30 MG/ML 1ML VIAL IV PRN (15:41)
[2024-07-15] MEDS: MORPHINE SULFATE 4 MG/ML SYR/VIAL IV PRN (18:13)
[2024-07-16 01:00] VITALS: BP 119/67; PULSE 63; RESP 17; TEMP 98; O2SAT 96
[2024-07-16 05:00] VITALS: BP 132/71; PULSE 64; RESP 18; TEMP 98.1; O2SAT 100
--- NOTE | 2024-07-16 06:28 | DVHPN2 ---
Progress Note - Dictate Date Seen: Jul 16, 2024 Medical Necessity Reason Pt with a Central, PICC or Fol: No vital signs Vital Sign Date Time Temp Pulse Resp B/P (MAP) Pulse Ox O2 Delivery O2 Flow Rate FiO2 07/16/24 05:47 58 132/71 07/16/24 05:00 98.1 18 100 98.1 07/15/24 20:00 Room Air* 0 21 Total Intake and Output 07/15/24 07/15/24 07/16/24 15:00 23:00 07:00 Intake Total 1225 ml 600 ml Balance 1225 ml 600 ml medications Current Medications Medications Dose Ordered Sig/Rivka Route Start Time Stop Time Status Last Admin Dose Admin Sodium Chloride 1,000 ml @ 75 mls/hr [id number] IV 07/11/24 14:45 07/16/24 01:44 75 MLS/HR Aspirin 325 mg DAILY PO 07/12/24 10:00 UNV Acetaminophen 650 mg Q6HP PRN PO 07/11/24 14:45 07/13/24 21:53 650 MG Ondansetron HCl 4 mg Q4HP PRN IV 07/11/24 14:45 07/14/24 13:16 4 MG Ascorbic Acid 500 mg DAILY PO 07/12/24 10:00 07/15/24 09:44 500 MG Gemfibrozil 600 mg BID PO 07/11/24 22:00 07/15/24 21:39 600 MG Multivitamins 1 tab DAILY PO 07/12/24 10:00 07/15/24 09:43 1 TAB Cholecalciferol 2,000 unit DAILY PO 07/12/24 10:00 07/15/24 09:44 2,000 UNIT Pantoprazole Sodium 40 mg DAILY PO 07/12/24 10:00 07/15/24 09:44 40 MG Pregabalin 225 mg TID PO 07/11/24 15:19 Hold Patient Own Medication 1 cap HS PO 07/11/24 22:00 Temazepam 30 mg HSPRN PRN PO 07/11/24 22:45 07/15/24 21:47 30 MG Hydrocortisone 15 mg DAILY PO 07/13/24 10:00 07/15/24 09:37 15 MG Divalproex Sodium 250 mg DAILY PO 07/13/24 10:00 12/9/24 09:43 250 MG Divalproex Sodium 500 mg HS PO 07/12/24 22:00 07/15/24 21:39 500 MG Metoprolol Tartrate 25 mg TID PO 07/12/24 22:00 07/15/24 13:28 25 MG Ketorolac Tromethamine 30 mg Q6HPRN PRN IV 07/13/24 13:50 07/18/24 13:49 07/16/24 05:40 30 MG Diphenhydramine HCl 25 mg Q4HP PRN IV 07/14/24 07:15 07/16/24 01:30 25 MG Cholestyramine Resin 4 gm DAILY@11 PO 07/14/24 11:00 07/15/24 11:42 4 GM Morphine Sulfate 4 mg Q6HPRN PRN IV 07/15/24 18:00 07/19/24 13:00 07/16/24 01:32 4 MG laboratory and microbiology Laboratory Tests 07/13/24 18:09 Test 07/13/24 18:09 Range/Units Serum Glucose 94 74-106 mg/dL Assessment/Plan Patient is a 38-year-old female who presented to the hospital for 1 week of feeling weak and lightheadedness accompanied with severe diarrhea and occasional chest discomfort. Cardiology is involved for cardiac aspects of care. She is known to our practice from outside and before. Does have history of SVT for which takes metoprolol. She was recently started in low-dose digoxin. It is known that she does have rheumatoid arthritis and was on IVIG for its management. It seems that around a month ago/6 weeks ago she had 1 course of IV IVIG which resulted in significant side effects. She is told by outside physicians that she should stop IVIG. Reportedly she did have repeated abdominal pains swellings. She mentions that she feels occasional palpitation (mostly when she stands up and walks around). It is of note that she mentions that she is experiencing repeated diarrhea for the past few weeks. She mentions that she has watery stools up to 6 to 7 times a day. Not in acute distress. Mucosa is pink and wet. No carotid bruit. No goiter. Not using accessory muscles of breathing. Lungs are clear to auscultation. Cardiac: Regular, no thrill/gallop. Abdomen is soft. Bowel sound is positive. There is no gross mass/hepatomegaly. Extremities do not reveal edema. Dorsalis pedis is 2+ bilateral Past medical history includes old history of colon cancer, hypertension, SVT (on metoprolol as outpatient), endometriosis, rheumatoid arthritis, Iglesias syndrome, history of multiple abdominal surgeries, previously on IVIG and questionable old myocardial infarction (seen/reported in a previous nuclear stress test). She actively smokes cigarettes. Denies drug abuse. Echocardiogram of August 2023 reported ejection fraction of 60-65%, normal diastolic, mobile interatrial septum, trace TR/MR and right ventricular systolic pressure of less than 35 mm Hg Creatinine: 0.71 - 0.65 - 0.65 - 0.67 Potassium: 4.1 - 3.7 - 3.3 - 4.2 TSH: 0.46 Troponin (high sensitive): 4 - <3 - <3 Digoxin level: < 0.14 Urine toxicology was positive for benzodiazepine Chest x-ray reported: IMPRESSION: 1. No acute cardiopulmonary disease. Abdomen and pelvic CT revealed: Findings: Evaluation of solid organs is limited due to lack of intravenous contrast use. Lung Bases: Minimal bibasilar atelectasis. Liver: Postsurgical changes along the anterior margin of the liver. Gallbladder and Biliary Tree: Gallbladder is surgically absent. Spleen: Unremarkable Pancreas: The pancreas is grossly normal in appearance. Adrenal Glands: Unremarkable Kidneys: Kidneys are grossly normal without calculi or hydronephrosis. Bladder: Grossly unremarkable for degree of distention. Bowel: The stomach is grossly normal in appearance. Small bowel and colon are normal in caliber and distribution. The appendix is not visualized; however, no secondary findings of acute appendicitis identified. Postsurgical changes of the colon near the hepatic flexure. There is a moderate amount colonic stool within the rectum and sigmoid colon. Ascites: Absent Lymphadenopathy: No mesenteric, retroperitoneal or periportal lymphadenopathy. Abdominal Wall and Mesentery: A drain/ tube is noted in the upper abdomen with one tip near the pancreatic head in the other in the left anterior abdominal mesentery. Vasculature: The visualized abdominal aorta is normal in size and caliber. Evaluation of abdominal and pelvic vessels is limited due to lack of intravenous contrast. Pelvic Organs: Unremarkable Musculoskeletal: No aggressive focal bony lesions, acute fractures or dislocation. IMPRESSION: 1. No evidence of bowel obstruction. Oral contrast material has reached the colon. 2. Stable postsurgical changes. No evidence of contrast leak EKG revealed sinus rhythm with no ST-T changes Tele reveals sinus rhythm Echocardiogram reported: Left ventricle: Left ventricle was normal size with normal systolic function. LVEF was around 65%. There was no gross wall motion abnormality. Left ventricular diastolic function was considered normal. Right ventricle was normal size with normal systolic function. Both atria were normal size. Mobile intra-atrial septum was observed. Aortic valve was trileaflet. There was no aortic insufficiency/stenosis. Mild mitral valve prolapse with minimal regurgitation was observed. There was no tricuspid regurgitation. There was no pulmonary valve insufficiency. There was no pericardial effusion. As there was no good tricuspid regurgitation jet, right ventricular systolic pressure could not be estimated. There was no echocardiographic evidence for pulmonary hypertension. Patient is a 38-year-old female who presented with generalized weakness and lightheadedness. She was concerned about palpitations. She was concerned about fast heart rate when standing up. It is of note that patient has been having significant and repeated diarrhea. She mentions that she has had chronic diarrhea since she had treatment for colon cancer. Diarrhea has increased since the last treatment for IVIG. Clinically, tachycardia has been sinus tachycardia and may have been secondary to low intravascular volume. It is of note that the patient does have history of SVT for which takes metoprolol. But SVT usually does not changed by patient's position. Most likely, the patient does have low intravascular volume as the etiology for repeated tachycardia during stand up and walking around. Is seen by GI Palpitation, when standing up Diarrhea, repeated History of colon cancer History of IVIG treatment, had side effects secondary to that SVT, history of Rheumatoid arthritis Iglesias syndrome Cardiac suggestion for management: Manage on telemetry Follow-up electrolytes and kidney function tests and correct abnormalities. Keep potassium above 4 and magnesium above 2. Metoprolol tartrate at 25 mg t.i.d. for now Keep hydrated Cardiac ramirez, stable and can be followed as outpatient Further evaluation and management depends on the above and clinical course A total of 55 minutes was spent reviewing the patient record, examining the patient, making a diagnostic and therapeutic plan, discussing this plan with medical personnel, following up on diagnostic studies and following the patient for clinical stability excluding any and all procedures. At least 50% of this time was spent in direct, [id number] contact. Thank you for allowing me to participate in this patient's care. Further recommendations will depend on patient's clinical course. Please do not hesitate to contact me if you have any questions or concerns. This medical document was created using electronic medical record system with [employer] computerized dictation system. Although this document has been carefully reviewed, there may still be some phonetic and typographical errors. These areas are purely typographical due to the imperfection of the software programs, and do not reflect any compromise in the patient's medical care. Plan discussed with: Patient, Other (nurse) YOLI DOLL MD Jul 16, 2024 06:28
[2024-07-16 08:00] VITALS: PULSE 54
[2024-07-16 09:00] VITALS: BP 126/76; PULSE 59; RESP 17; TEMP 97.4; O2SAT 100
[2024-07-16] MEDS ORDERED: ACET-1079 PO (12:52)
[2024-07-16] MEDS ORDERED: CHL4PW PO (12:52)
[2024-07-16] MEDS ORDERED: IBU600T PO (12:52)
[2024-07-16 13:00] VITALS: BP 135/83; PULSE 64; RESP 17; TEMP 98; O2SAT 100
--- NOTE | 2024-07-16 14:08 | DVHDS2 ---
Discharge Summary Date of Admission Jul 11, 2024 at 14:40 Date of Discharge: Jul 16, 2024 Labs/Diagnostic Data: Laboratory Results Test 07/13/24 18:09 07/12/24 08:58 07/12/24 00:00 07/11/24 11:01 White Blood Count 7.2 10^3/uL (4.4-10.8) Red Blood Count 5.08 10^6/uL (4.0-5.20) Hemoglobin 15.0 g/dL (12.2-16.2) Hematocrit 44.5 % (36.0-46.0) Mean Corpuscular Volume 87.5 fL (80.0-100.0) Mean Corpuscular Hemoglobin 29.5 pg (28.0-32.0) Mean Corpuscular Hemoglobin Concent 33.7 g/dL (32.0-36.0) Red Cell Distribution Width 12.5 % (11.8-14.3) Platelet Count 153 10^3/uL (140-450) Mean Platelet Volume 9.4 fL (6.9-10.8) Neutrophils (%) (Auto) 71.7 % (37.0-80.0) Lymphocytes (%) (Auto) 23.4 % (10.0-50.0) Monocytes (%) (Auto) 4.1 % (0.0-12.0) Eosinophils (%) (Auto) 0.4 % (0.0-7.0) Basophils (%) (Auto) 0.4 % (0.0-2.0) Neutrophils # (Auto) 5.2 10 ^3/uL (1.6-8.6) Lymphocytes # (Auto) 1.7 10 ^3/uL (0.4-5.4) Monocytes # (Auto) 0.3 10 ^3/uL (0-1.3) Eosinophils # (Auto) 0 10 ^3/uL (0-0.8) Basophils # (Auto) 0 10 ^3/uL (0-0.2) Nucleated Red Blood Cells 0.1 % Sodium Level 145 mmol/L (136-145) Potassium Level 4.2 mmol/L (3.5-5.1) Chloride Level 111 mmol/L (98-107) Carbon Dioxide Level 26 mmol/L (20-31) Anion Gap 8 (5-15) Blood Urea Nitrogen 5 mg/dL (9-23) Creatinine 0.67 mg/dL (0.550-1.02) Glomerular Filtration Rate Calc 115 mL/min (>90) BUN/Creatinine Ratio 7.5 (10.0-20.0) Serum Glucose 94 mg/dL (74-106) Calcium Level 9.6 mg/dL (8.7-10.4) Total Bilirubin 0.9 mg/dL (0.2-1.0) Aspartate Amino Transferase (AST) 26 U/L (13-40) Alanine Aminotransferase (ALT) 51 U/L (7-40) Alkaline Phosphatase 103 U/L (46-116) Total Protein 6.5 g/dL (5.7-8.2) Albumin 4.3 g/dL (3.2-4.8) Lipase 38 U/L (12-53) Free Thyroxine Index 2.2 (1.2-4.9) Thyroxine (T4) 7.8 ug/dL (4.5-12.0) Triiodothyronine (T3) Uptake 28 % (24-39) Digoxin Level < 0.14 ng/mL (0.8-2) Urine Color Yellow (Yellow) Urine Clarity Clear (Clear) Urine pH 5.5 (5.0-9.0) Urine Specific [place] 1.025 (1.001-1.035) Urine Protein Trace (Negative) Urine Ketones Negative (Negative) Urine Blood Negative /uL (Negative) Urine Nitrite Negative (Negative) Urine Bilirubin Negative (Negative) Urine Urobilinogen Normal mg/dL (Negative) Urine Leukocyte Esterase Negative /uL (Negative) Urine RBC <1 /hpf (0 - 4) Urine WBC 1 /hpf (0 - 5) Urine Squamous Epithelial Cells Few /hpf (<5) Urine Bacteria None seen /hpf (None Seen) Urine Mucus Few (None Seen) Urine Yeast (Budding) Occasional /hpf (None Urine Glucose Normal mg/dL (Normal) Troponin I High Sensitivity < 3 ng/L (</=34) Test 07/11/24 08:03 07/11/24 08:02 Urine Opiates Screen Neg (NEGATIVE) Urine Fentanyl Screen Neg (NEGATIVE) Urine Barbiturates Screen Neg (NEGATIVE) Urine Phencyclidine Screen Neg (NEGATIVE) Urine Amphetamines Screen Neg (NEGATIVE) Urine Benzodiazepines Screen Pos (NEGATIVE) Urine Cocaine Screen Neg (NEGATIVE) Urine Cannabinoids Screen Neg (NEGATIVE) Prothrombin Time 10.7 sec (9.3-11.8) Prothrombin Time INR 1.01 (0.9-1.15) Activated Partial Thromboplast Time 27.3 SEC (24.5-34.5) Triglycerides Level 294 mg/dL (< 150) Cholesterol Level 159 mg/dL (< 200) LDL Cholesterol 72 mg/dL (< 100) HDL Cholesterol 37 mg/dL (40-59) Thyroid Stimulating Hormone (TSH) 0.46 uIU/mL (0.55-4.78) Other Laboratory Tests 07/13/24 18:09 Brief Hx & Hospital Course: 38-year-old female with history of colon cancer status post resection and chemo, prior history of SVT admitted for palpitation and dizziness, patient reported having diarrhea. Likely SVT provoked by dehydration. 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 Patient also have chronic pain which was managed previously by [facility], however does not have pain management anymore. Patient will be discharged with medication, to return to discharge clinic for pain management referral Condition at Discharge: Good Final Diagnosis/Problems List SVT provoked by dehydration Discharge Disposition: Home Discharge Instruct/Medications Diet: See Comment Activity: No Restrictions, As Tolerated Follow Up/Referral: [facility] pain management Medications: cholestyramine motrin and tylenol combined lyrica gabapentin 39 Discharge Statement: "Patient was advised to return to the ER or call 911 if any headaches, dizziness, shortness of breath, chest pain, abdominal pain, bleeding, fevers, or worsening of medical condition. Patient was counseled about treatment plan, medications, possible side effects, patientverbalized understanding. All questions were answered to the best of my ability. This discharge took greater then 30 minutes in planning, reviewing documentation, counseling the patient, and discussing with other team members." ASSESSMENT ASSESSMENT Assessment Likely SVT provoked by dehydration History of SVT Hypertension MO Colon cancer status post resection and chemo Appendectomy History of Cholecystectomy Hysterectomy liver resection Bile acid malabsorption syndrome Chronic pain syndrome Date of Service: Jul 16, 2024 Billing Provider: JULIENNE HOWARD MD Common Visit Codes: 24280-SID/OBS DISCH DAY >30min JULIENNE HOWARD MD Jul 16, 2024 14:08
[2024-07-16] MEDS ORDERED: MORP15TA PO (14:09)
[2024-07-16 16:17] VITALS: BP 135/83; PULSE 64; RESP 17
== END 2024-07-16 17:34 | disposition home or self-care (01) | DRG 201 ==
LOC: ER 07:51 → TELE 14:40 → TELE-WESTW 23:28
PROVIDERS: ATTEND Student in an Organized Health Care Education/Training Program
DX: I47.10 Supraventricular tachycardia, unspecified (principal); C18.9 Malignant neoplasm of colon, unspecified; E27.40 Unspecified adrenocortical insufficiency; K90.9 Intestinal malabsorption, unspecified; E86.0 Dehydration; F17.210 Nicotine dependence, cigarettes, uncomplicated; I25.2 Old myocardial infarction; G89.4 Chronic pain syndrome; G62.9 Polyneuropathy, unspecified; F32.9 Major depressive disorder, single episode, unspecified; I34.1 Nonrheumatic mitral (valve) prolapse; I49.9 Cardiac arrhythmia, unspecified; I10 Essential (primary) hypertension; M06.9 Rheumatoid arthritis, unspecified; Z88.1 Allergy status to other antibiotic agents; Z88.8 Allergy status to other drugs, medicaments and biological substances; Z88.3 Allergy status to other anti-infective agents; Z92.21 Personal history of antineoplastic chemotherapy; Z90.710 Acquired absence of both cervix and uterus; Z90.49 Acquired absence of other specified parts of digestive tract; Z85.05 Personal history of malignant neoplasm of liver; Z85.038 Personal history of other malignant neoplasm of large intestine; Z82.49 Family history of ischemic heart disease and other diseases of the circulatory system; Z15.09 Genetic susceptibility to other malignant neoplasm; Z79.899 Other long term (current) drug therapy
CPT/HCPCS: 36415; 71045; 74176; 80053; 80061; 80162; 80307; 81001; 83690; 84443; 84484; 85025; 85610; 85730; 93005; 93306; 96360; 99291; G0378; J1885; J2405

== ENCOUNTER 2024-07-25 13:04 | Emergency (ER) | payer MEDICAID ==
[~2024-07-25] VITALS: Ht 167.6 cm; Wt 74.6 kg
[~2024-07-25 13:04] MED LIST changes: +ACET-1079 PO; -CARI1CAP2 PO; +CHL4PW PO; -CLON-1004 PO; +DIVA-92 PO; +DIVA-93 PO; -FENT25DI2 PO; -GEMF-66 PO; +HYDR2.5O TOP; -HYDR8TAB46 PO; +IBU600T PO; +METO25TA5 PO; +MORP15TA PO; +TEMA30CA5 PO; -TRAZ-228 PO; -[UNRECOGNIZED DRUG - CODE] IJ; -[UNRECOGNIZED DRUG - CODE] PO
--- NOTE | 2024-07-25 14:01 | DVH ---
EXAM: XY CHEST PORTABLE TECHNIQUE: Single frontal chest radiograph CLINICAL HISTORY: PALPITATIONS COMPARISON: XY CHEST PORTABLE on DOS: 07/11/24, XY CHEST XRAY 1 VIEW on DOS: 08/02/23, XY CHEST PORTAB LE on DOS: 07/26/23 Findings/Impression: Frontal chest radiograph demonstrates no acute osseous or superficial soft tissue abnormalities. Righ t chest wall port terminates near the superior cavoatrial junction. The trachea is midline. The cardiac silhouette and mediastinum are within normal limits. No pneumothorax, pleural effusions, or consolidations.
--- NOTE | 2024-07-25 14:10 | ED.PDOC ---
History of Present Illness HPI Comments 38F presents to the ER w/ prior Hx of MN, HTN and SVT which all may be associated to the c/c of palpitations. Pt reports on being admitted to the ER at [facility] for 4 days and being discharged last week. Pt called the [facility] so that they can see what is wrong w/ the pt due from her having colon Sx from the colon cancer. Pt has an appointment w/ [facility] but was told if she has any other symptoms, to go to the ER. Pt has left sided rib pain, palpitations and dizziness. Pt notes that she has bile as well. pain type of a 03/16. PMHx of colon cancer, Appendectomy, Cholecystectomy, x3, Hysterectomy and Colon Sx. Social Hx of Tobacco use, but denies alcohol and substance use. Denies chills, fever, N/V, SOB, CP or other associated symptom's, modifiers, or recent injuries or sick contact at this time. Chief Complaint: Palpitations Time Seen by MD: 14:00 Primary Care Provider: LEONARDO Reviewed Notes: Nurses Notes, Medications, Allergies Allergies: Coded Allergies: Levofloxacin (Verified Allergy, Severe, chest pain, 02/13/23) Amitriptyline (Verified Allergy, Unknown, chest tightness, hallucinations, 08/03/23) Nitroglycerin (Verified Allergy, Unknown, rash, 08/03/23) Quetiapine (Verified Allergy, Unknown, chest tightness, hallucinations, 08/03/23) Sulfamethoxazole w/Trimethoprim (Verified Allergy, Unknown, 07/26/23) Sumatriptan (Verified Allergy, Unknown, severe palpitations, 08/03/23) Home Meds Active Scripts Morphine Sulfate (Morphine Sulfate) 15 Mg Tab, 1 TAB PO QID for 5 Days, #20 TAB Prov:JULIENNE HOWARD MD 07/16/24 Acetaminophen (Tylenol) 325 Mg Tb, 650 MG PO TID PRN for 10 Days, #60 TAB Prov:JULIENNE HOWARD MD 07/16/24 Ibuprofen Micronized (MOTRIN TABLET) 600 Mg Tb, 600 MG PO TID PRN for 5 Days, #15 TAB *Black box warning-NSAIDS can increase risk of MN & hypertension, GI irritation, ulceration, bleed, perferation. Do not use post cardiac surgery. Use short duration/lowest effective dose. Prov:JULIENNE HOWARD MD 07/16/24 Cholestyramine (QUESTRAN POWDER) 4 Gm Pw, 4 GM PO DAILY@11 for 30 Days, #30 POW Prov:JULIENNE HOWARD MD 07/16/24 Diphenhydramine Hcl (BENADRYL CAPSULE) 25 Mg Cp, 25 MG PO QID, #28 CAP Prov:JOSE GOODMAN MD 07/28/23 Labetalol Hcl (Labetalol Hcl) 300 Mg Tab, 1 TAB PO TID, #180 TAB 3 Refills Prov:JOSE GOODMAN MD 07/28/23 Nifedipine (Nifedipine Er) 60 Mg Tab, 1 TAB PO DAILY, #90 TAB 3 Refills Prov:JOSE GOODMAN MD 07/28/23 Reported Medications Divalproex Sodium (Depakote Er) 500 Mg Tab, 1 TAB PO BID, #60 TAB 2 Refills 07/11/24 Divalproex Sodium (Depakote Er) 250 Mg Tab, 1 TAB PO QPM, #30 TAB 2 Refills 07/11/24 Temazepam (Restoril) 30 Mg Cap, 1 CAP PO QPM, #30 CAP 1 Refill 07/11/24 Hydrocortisone Base (Hydrocortisone) 2.5 % Oin, TOP BID, #60 GRAMS 1 Refill 07/11/24 Metoprolol Tartrate (Metoprolol Tartrate) 25 Mg Tab, 1 TAB PO BID, #60 TAB 5 Refills 07/11/24 Cholecalciferol (VITAMIN D3) 2,000 Unit Tab, 1 TAB PO DAILY, #30 TAB 5 Refills 07/27/23 Omeprazole Magnesium (Omeprazole) 20 Mg Tab, 20 MG PO DAILY, TAB 07/27/23 Multiple Vitamin (Multivitamins) Tab, 1 TAB PO DAILY, #90 TAB 3 Refills 07/27/23 Ascorbic Acid (VITAMIN C TABLET) 500 Mg Tb, 1 TAB PO DAILY, #30 TAB 3 Refills 07/27/23 Magnesium Oxide (Mg Supplement (MAGNESIUM) 400 Mg Cap, 400 MG PO, CAP 07/27/23 Pregabalin (Pregabalin) 225 Mg Cap, 1 CAP PO TID 07/26/23 Tizanidine HCl (Tizanidine Hydrochloride) 2 Mg Cap, 1 CAP PO HS 07/26/23 Information Source: Patient Mode of Arrival: Ambulatory Severity: Moderate Timing: Days Duration: Since onset, Days Prehospital treatment: None Past Medical History PAST MEDICAL HISTORY: Cancer (Had Colon Cancer/ Not Anymore), HTN, MN Past Medical History (Other): SVT Surgical History: Appendectomy, Cholecystectomy, (x3), Hysterectomy Surgical History (Other): Colon Sx [employer]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 History: Endometriosis Family History Family History: Reviewed,noncontributory to illness, Unknown Social History Smoker: Cigarettes Alcohol: Denies ETOH Use Drugs: Denies Drug Use Lives In: Home Constitutional: denies: chills, diaphoresis, fatigue, fever, malaise, sweats, weakness, others EENTM: denies: blurred vision, double vision, ear bleeding, ear discharge, ear drainage, ear pain, ear ringing, eye pain, eye redness, hearing loss, mouth pain, mouth swelling, nasal discharge, nose bleeding, nose congestion, nose pain, photophobia, tearing, throat pain, throat swelling, voice changes, others Respiratory: denies: cough, hemoptysis, orthopnea, SOB at rest, shortness of breath, SOB with excertion, stridor, wheezing, others Cardiovascular: reports: palpitations; denies: chest pain, dizzy spells, diaphoresis, Dyspnea on exertion, edema, irregular heart beat, left arm pain, lightheadedness, PND, syncope, others Gastrointestinal: denies: abdomen distended, abdominal pain, blood streaked bowels, constipated, diarrhea, dysphagia, difficulty swallowing, hematemesis, melena, nausea, poor appetite, poor fluid intake, rectal bleeding, rectal pain, vomiting, others Genitourinary: denies: abnormal vagina bleeding, burning, dyspareunia, dysuria, flank pain, frequency, hematuria, incontinence, pain, , vagina discharge, urgency, others Neurological: reports: dizziness; denies: fainting, headache, left sided numbness, left sided weakness, numbness, paresthesia, pre-existing deficit, right sided numbness, right sided weakness, seizure, speech problems, tingling, tremors, weakness, others Musculoskeletal: denies: back pain, gout, joint pain, joint swelling, muscle pain, muscle stiffness, neck pain, others Integumetry: denies: bruises, change in color, change in hair/nails, dryness, laceration, lesions, lumps, rash, wounds, others Allergic/Immunocompromised: denies: Difficulty Healing, Frequent Infections, Hives, Itching, others Hematologic/Lymphatic: denies: anemia, blood clots, easy bleeding, easy bruising, swollen glands, others Endocrine: denies: excessive hunger, excessive sweating, excessive thirst, excessive urination, flushing, intolerance to cold, intolerance to heat, unexplained weight gain, unexplained weight loss, others Psychiatric: denies: anxiety, bipolar disorder, depression, hopeless, panic disorder, schizophrenia, sleepless, suicidal, others All Other Systems: Reviewed and Negative Physical Exam General Appearance: Mild Distress HEENT: Normal ENT Inspection, Pharynx Normal, TMs Normal Neck: Full Range of Motion, Non-Tender, Normal, Normal Inspection Respiratory: Chest Non-Tender, Lungs Clear, No Accessory Muscle Use, No Respiratory Distress, Normal Breath Sounds Cardiovascular: No Edema, No JVD, No Murmur, No Gallop, Normal Peripheral Pul ses, Regular Rate/Rhythm Breast Exam: Deferred Gastrointestinal: No Organomegaly, No Pulsatile Mass, Normal Bowel Sounds, Soft, Suprapubic, Tenderness Genitalia: Deferred Pelvic: Deferred Rectal: Deferred Extremities: No calf tenderness, Normal capillary refill, Normal inspection, Normal range of motion, Non-tender, No pedal edema Musculoskeletal : Apperance: Normal Neurologic: Alert, range conservationist II-XII nml as Tested, No Motor Deficits, Normal Affect, Normal Mood, No Sensory Deficits Cerebellar Function: Normal Reflexes: Normal Skin: Dry, Normal Color, Warm Lymphatic: No Adenopathy Was a procedure done? Was a procedure done?: No Differential Dx Considerations may include: UTI, bowel obstruction, appendicitis X-Ray, Labs, Meds, VS Vital Signs Date Time Temp Pulse Resp B/P (MAP) Pulse Ox O2 Delivery O2 Flow Rate FiO2 07/25/24 13:37 81 07/25/24 13:36 98.8 81 16 124/78 (93) 100 Lab Test 07/25/24 14:48 07/25/24 14:25 07/25/24 13:36 Range/Units Urine Color Yellow Yellow Urine Clarity Clear Clear Urine pH 5.5 5.0-9.0 Urine Specific [place] 1.015 1.001-1.035 Urine Protein Negative Negative Urine Ketones Negative Negative Urine Blood Negative Negative /uL Urine Nitrite Negative Negative Urine Bilirubin Negative Negative Urine Urobilinogen Normal Negative mg/dL Urine Leukocyte Esterase Negative Negative /uL Urine RBC 1 0 - 4 /hpf Urine WBC 9 0 - 5 /hpf Urine Squamous Epithelial Cells Few <5 /hpf Urine Amorphous Crystals Few None Seen /hpf Urine Bacteria Mod H None Seen /hpf Urine Mucus Few None Seen Urine Glucose Normal Normal mg/dL Troponin I High Sensitivity 3 L 3 L </=34 ng/L White Blood Count 11.1 H 4.4-10.8 10^3/uL Red Blood Count 5.43 H 4.0-5.20 10^6/uL Hemoglobin 15.7 12.2-16.2 g/dL Hematocrit 46.1 H 36.0-46.0 % Mean Corpuscular Volume 84.9 80.0-100.0 fL Mean Corpuscular Hemoglobin 28.8 28.0-32.0 pg Mean Corpuscular Hemoglobin Concent 34.0 32.0-36.0 g/dL Red Cell Distribution Width 12.5 11.8-14.3 % Platelet Count 239 140-450 10^3/uL Mean Platelet Volume 10.0 6.9-10.8 fL Neutrophils (%) (Auto) 72.2 37.0-80.0 % Lymphocytes (%) (Auto) 21.5 10.0-50.0 % Monocytes (%) (Auto) 4.3 0.0-12.0 % Eosinophils (%) (Auto) 0.4 0.0-7.0 % Basophils (%) (Auto) 1.6 0.0-2.0 % Neutrophils # (Auto) 8.0 1.6-8.6 10 ^3/uL Lymphocytes # (Auto) 2.4 0.4-5.4 10 ^3/uL Monocytes # (Auto) 0.5 0-1.3 10 ^3/uL Eosinophils # (Auto) 0 0-0.8 10 ^3/uL Basophils # (Auto) 0.2 0-0.2 10 ^3/uL Nucleated Red Blood Cells 0.2 % Sodium Level 142 136-145 mmol/L Potassium Level 3.6 3.5-5.1 mmol/L Chloride Level 108 H 98-107 mmol/L Carbon Dioxide Level 27 20-31 mmol/L Anion Gap 7 5-15 Blood Urea Nitrogen 14 9-23 mg/dL Creatinine 0.70 0.550-1.02 mg/dL Glomerular Filtration Rate Calc 114 >90 mL/min BUN/Creatinine Ratio 20.0 10.0-20.0 Serum Glucose 82 74-106 mg/dL Calcium Level 10.1 8.7-10.4 mg/dL Total Bilirubin 0.6 0.2-1.0 mg/dL Aspartate Amino Transferase (AST) 29 13-40 U/L Alanine Aminotransferase (ALT) 59 H 7-40 U/L Alkaline Phosphatase 107 46-116 U/L Total Protein 6.7 5.7-8.2 g/dL Albumin 4.5 3.2-4.8 g/dL Lipase 34 12-53 U/L Chest x-ray shows: Findings/Impression: Frontal chest radiograph demonstrates no acute osseous or superficial soft tissue abnormalities. Right chest wall port terminates near the superior cavoatrial junction. The trachea is midline. The cardiac silhouette and mediastinum are within normal limits. No pneumothorax, pleural effusions, or consolidations. The CBC shows an elevated white blood cell count of 11.1 The rest of the CBC and chemistry panel are within normal limits The urine test is positive for a UTI The CT scan of the abdomen and pelvis shows:IMPRESSION: 1. No acute abdominal or pelvic findings. Postsurgical changes in the colon. No evidence of obstruction. Abandoned catheter in the upper abdomen. At this time, the patient is being discharged The patient will follow up with the primary care doctor The patient was given a prescription of Macrobid for the UTI Images Reviewed?: Images reviewed and evaluated by me Time of 1ST Reevaluation: 14:30 Reevaluation 1ST: Unchanged Patient Education/Counseling: Diagnosis, Treatment, Prognosis, Need For Follow Up Family Education/Counseling: No Family Present Departure 1 Departure Time of Disposition: 17:45 Impression: Primary Impression: UTI (urinary tract infection) Qualified Codes: N30.00 - Acute cystitis without hematuria Disposition: 01 HOME / SELF CARE / HOMELESS Condition: Fair Discharged With: Self Critical Care Note Critical Care Time?: No Stability Stability form required: No Heart Score Heart Score: Heart Score Response (Comments) Value History N/A 0 EKG N/A 0 Age N/A 0 Risk Factors N/A 0 Troponin N/A 0 Total 0 I personally scribed for KATHYA CEVALLOS MD ([email or web address]) on 07/25/24 at 14:10. Electronically submitted by Dimitri Sampson ([email or web address]). KATHYA CEVALLOS MD Jul 25, 2024 14:10
[2024-07-25 14:21] LABS: Basophils # (auto) 0.2 10 ^3/uL (0-0.2); Basophils % (auto) 1.6 % (0.0-2.0); Eosinophils # (auto) 0 10 ^3/uL (0-0.8); Eosinophils % (auto) 0.4 % (0.0-7.0); Hematocrit 46.1 % (36.0-46.0); Hemoglobin 15.7 g/dL (12.2-16.2); Lymphocytes # (auto) 2.4 10 ^3/uL (0.4-5.4); Lymphocytes % (auto) 21.5 % (10.0-50.0); Mean Corpuscular Hemoglobin 28.8 pg (28.0-32.0); Mean Corpuscular Volume 84.9 fL (80.0-100.0); Monocytes # (auto) 0.5 10 ^3/uL (0-1.3); Monocytes % (auto) 4.3 % (0.0-12.0); Neutrophils % (auto) 72.2 % (37.0-80.0); Nucleated Red Blood Cells % 0.2 %; Platelet Count (auto) 239 10^3/uL (140-450); Red Blood Cells 5.43 10^6/uL (4.0-5.20); Red Cell Distribution Width 12.5 % (11.8-14.3); White Blood Cell 11.1 10^3/uL (4.4-10.8)
--- NOTE | 2024-07-25 14:21 | DVH ---
Exam: CT CT AB PEL WO CON-NO ORAL OR IV History: pain Comparison Study: CT CT AB PEL WITH ORAL CON ONLY on DOS: 07/14/24, CT CT AB PEL WO CON-NO ORAL OR IV on DOS: 07/14/24 Technique: Multidetector spiral CT of the abdomen and pelvis was performed from lung bases to pubic symphysis. Imaging was performed without IV contrast. Axial, coronal and sagittal multiplanar reform ats were obtained from the axial data set by the technologist. Radiation dose : Abdomen/Pelvis: CTDIvol 8 mGy, DLP 481 mGy*cm. Findings: Evaluation of solid organs is limited due to lack of intravenous contrast use. Lung Bases: No acute or significant lung base finding. Normal heart size. No pleural or pericardial effusion. Liver: The liver is normal in size. No focal lesions. Gallbladder and biliary Tree: Gallbladder is surgically absent. Spleen: Unremarkable Pancreas: The pancreas is grossly normal in appearance. Adrenal Glands: Unremarkable Kidneys: Kidneys are grossly normal without calculi or hydronephrosis. Bladder: Grossly unremarkable for degree of distention. Bowel: The stomach is grossly normal in appearance. Postsurgical changes in the right colon. No evide nce of obstruction. The appendix is not visualized; however, no secondary findings of acute appendic itis identified. Ascites: Absent Lymphadenopathy: No mesenteric, retroperitoneal or periportal lymphadenopathy. Abdominal wall and Mesentery: Abandoned catheter in the upper abdomen. Vasculature: The visualized abdominal aorta is normal in size and caliber. Evaluation of abdominal a nd pelvic vessels is limited due to lack of intravenous contrast. Pelvic Organs: The uterus is surgically absent. Musculoskeletal: No aggressive focal bony lesions, acute fractures or dislocation. IMPRESSION: 1. No acute abdominal or pelvic findings. Postsurgical changes in the colon. No evidence of obstruct ion. Abandoned catheter in the upper abdomen. Radiation optimization: All CT scans at this facility use at least one of these dose optimization halina hniques: Automated exposure control mA and/or kV adjustment per patient size (includes targeted exams where dose is matched to clinical indication) or iterative reconstruction. HS:Y
[2024-07-25 14:31] LABS: Albumin 4.5 g/dL (3.2-4.8); Alkaline Phosphatase 107 U/L (46-116); Anion Gap 7 (5-15); Blood Urea Nitrogen 14 mg/dL (9-23); Calcium 10.1 mg/dL (8.7-10.4); Carbon Dioxide 27 mmol/L (20-31); Glucose 82 mg/dL (74-106); Potassium 3.6 mmol/L (3.5-5.1); Sodium 142 mmol/L (136-145)
[2024-07-25 14:32] LABS: Alanine Aminotransferase 59 U/L (7-40); Aspartate Aminotransferase 29 U/L (13-40); Bilirubin, Total 0.6 mg/dL (0.2-1.0); Chloride 108 mmol/L (98-107); Total Protein 6.7 g/dL (5.7-8.2)
[2024-07-25 15:09] LABS: Urine Amorphous Crystal FEW /hpf (None Seen); Urine Bacteria MOD /hpf (None Seen); Urine Blood Negative /uL (Negative); Urine Clarity Clear (Clear); Urine Color Yellow (Yellow); Urine Mucus FEW (None Seen); Urine Protein, UAD Negative (Negative); Urine Specific Gravity 1.015 (1.001-1.035); Urine Urobilinogen Normal (Negative); Urine WBC 9 /hpf (0 - 5); Urine pH 5.5 (5.0-9.0)
[2024-07-25] MEDS ORDERED: NITR-87 PO (18:46)
[2024-07-25 18:53] VITALS: BP 128/97; PULSE 100; RESP 17; TEMP 97.9; O2SAT 98
--- NOTE | 2024-07-26 06:38 | ECG ---
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
== END 2024-07-25 18:58 | disposition home or self-care (01) ==
LOC: ER 13:04
DX: N39.0 Urinary tract infection, site not specified (principal); I10 Essential (primary) hypertension; F17.210 Nicotine dependence, cigarettes, uncomplicated; Z88.2 Allergy status to sulfonamides; Z88.6 Allergy status to analgesic agent; Z88.1 Allergy status to other antibiotic agents; Z79.899 Other long term (current) drug therapy; Z90.49 Acquired absence of other specified parts of digestive tract; Z90.89 Acquired absence of other organs; Z98.890 Other specified postprocedural states; Z90.710 Acquired absence of both cervix and uterus
CPT/HCPCS: 36415; 71045; 74176; 80053; 81001; 83690; 84484; 85025; 93005